=== PATIENT | female | born 1990 | race Caucasian/White ===

== ENCOUNTER 2018-09-22 15:21 | Emergency (ER) | payer OTHER, SELFPAY ==
[2018-09-22 15:23] VITALS: BP 163/87; PULSE 117; RESP 16; TEMP 36.6; O2SAT 99; BMI 42.3
--- NOTE | 2018-09-22 15:28 | RAD_ITS ---
STUDY: X-RAY - LEFT FOOT CLINICAL: Female, 28 years old. Twisted foot TECHNIQUE: 3 view(s) of the foot. COMPARISON: None. FINDINGS: There is a small osseous fragment along the superior, anterior talus with overlying dorsal soft tissue swelling, correlate clinically and with physical exam for possibility of small nondisplaced fracture. Otherwise the osseous structures are intact. The joint spaces are maintained. The soft tissue structures are unremarkable. RAD/Foot min 3 Views IMPRESSION: See above. Electronically Signed: Carrie Santillan, at 16:06 EDT Tel , Service support ,
--- NOTE | 2018-09-22 15:30 | ED.DCSUM_ITS ---
History of Present Illness Chief Complaint: Lower Extremity Injury Informant: Patient Occurred: Today Mechanism/Context: Fall - Missed last step and had a plantar inversion mechanism injury. She states she heard a pop. She complains of foot pain not ankle pain. Current Severity: 1/10 Maximum Severity: 8/10 Worsened by: Palpation and weightbearing. Relieved by: Rest Associated Symptoms: Loss of Funtion. Negative for: Parasthesia, Weakness Narrative: Patient is a 28-year-old woman who presents with left lower extremity injury. She was walking down steps. She missed the last lot. She reports a plantar inversion mechanism injury. He complains of pain lateral side of the left foot. She denies ankle pain. She denies prior injury. She reports no past medical history. Tetanus Immunization: 5-10 years Prior similar symptoms: No Recent Illness/Hospitalization: No - Past Medical History (1) No significant past medical history Status: Acute Past Medical History - Allergies and Home Meds Allergies/Adverse Reactions: Allergies No Known Allergies Allergy (Verified 09/22/18 15:25) Primary Care Physician: John Greenfield DO [Primary Care Provider] - Past Medical History: None Surgical History: no surgical history Lives: Spouse/ Significant Other Smoking Status: Never smoker Alcohol: Rare Drugs: None Review of Systems Musculoskeletal: Reports: Swelling - Left foot, Extremity Pain - left foot. Denies: Myalgias, Arthralgias, Neck pain, Back pain Neurological: Denies: Weakness, Parasthesia, Numbness Hematologic: Denies: Easy bruising, Easy bleeding Allergy: Denies: Uticaria, Swelling of the mouth Physical Exam Vital Signs/Narrative: Vital Signs Temp Pulse Resp BP Pulse Ox 09/22/18 15:23 97.8 F 117 H 16 163/87 H 99 Inital Vital Signs reviewed: Yes - Extremity Exam Left Knee: Negative for: Abrasion, Contusion, Deformity, Edema, Hematoma, Limited ROM, - Left Tib Fib: Negative for: Abrasion, Contusion, Deformity, Edema, Hematoma, Limited ROM, - Left Ankle: Negative for: Abrasion, Contusion, Deformity, Edema, Hematoma, Limited ROM, - - There is no pain no patient over the lateral medial malleolus. The Achilles tendon is functionally intact. No laxity with drawer testing. Left Foot: Negative for: Abrasion, Contusion, Deformity, Edema, Hematoma, Limited ROM, - - Pain to palpation over the tarsal/metatarsal bones. There is no point tenderness over the base of the fifth metatarsal. PT pulses palpable. Unable to palpate DP pulse secondary to soft tissue swelling. There is no pain to palpation over the first metatarsal bone. Left Toe: Contusion, Edema, Hematoma, Limited ROM, - - Pain to palpation over the tarsal/metatarsal bones. There is no point tenderness over the base of the fifth metatarsal. PT pulses palpable. Unable to palpate DP pulse secondary to soft tissue swelling. There is no pain to palpation over the first metatarsal bone. There is no subungual hematoma of the toes. There is no pain palpation of the phalanges.. Negative for: Abrasion, Deformity General: Well nourished, Well developed, Obese Head: Normocephalic, Atraumatic Eyes: Perrl, EOMI. Negative for: Pale conjunctiva, Scleral icterus, - ENT: No Trauma, Moist Mucous Membranes Cardiovascular: Regular rate, Regular rhythm Respiratory: No distress Skin: Normal color, Trauma. Negative for: Cyanosis, Jaundice Neurological: Alert, Oriented x3, Cranial nerves II-XII grossly intact, Normal Strength, Normal Sensation. Negative for: Normal Gait Psychological: Normal affect Diagnostic/Tx/Re-eval Chest X-Ray - ED: Read by ED Physician, - - 3 view x-ray of the left foot was interpreted me as a nondisplaced avulsion fracture distal anterior talus. Dr. Richter was paged at 1603 to discuss treatment and follow-up. - Medical Decision Making X-ray of the left foot was obtained since there is no tenderness over the lateral medial malleolus. X-ray was obtained to evaluate for soft tissue injury versus fracture. Patient was offered pain medicine, which she declined. Procedures - Lower Extremity Splints Lower Extremity Splint: Orthoglass - Posterior short leg splint with ankle at 90 degrees Splint Fabrication: Fabricated Location: Left ED Disposition - Plan for ED Patient: Disposition: Home or Assisted Living Diagnosis: Nondisplaced avulsion fracture (chip fracture) of left talus, initial encounter for closed fracture Instructions: ED Fx Foot, ED Splint Care Fiberglass Prescriptions: Hydrocodone Bitart/Apap 5-325 [[place] 5MG-325MG] 1 tab PO Q6H PRN PRN 3 Days #10 tab PRN Reason: Pain Referrals: John Greenfield DO [Primary Care Provider] - Landry White DO [STAFF PHYSICIAN] - 5-7 Days Additional Instructions: Must keep splint absolutely clean and dry. Do not place any weight on your left foot.
== END 2018-09-22 17:54 | disposition home or self-care (01) ==
PROVIDERS: Emergency Provider Emergency Medicine; Family Provider Student in an Organized Health Care Education/Training Program; PCP Student in an Organized Health Care Education/Training Program
DX: S92.155A Nondisplaced avulsion fracture (chip fracture) of left talus, initial encounter for closed fracture (principal); X50.1XXA Overexertion from prolonged static or awkward postures, initial encounter; Y93.01 Activity, walking, marching and hiking; Y92.009 Unspecified place in unspecified non-institutional (private) residence as the place of occurrence of the external cause; Y99.8 Other external cause status
CPT/HCPCS: 29515; 73630; 99282

== ENCOUNTER → 2018-10-04 | Outpatient (CLI) | payer OTHER, SELFPAY ==
[2018-09-22 15:23] VITALS: BMI 42.3
--- NOTE | 2018-10-04 13:00 | CT_ITS ---
STUDY: CT LEFT FOOT REASON FOR EXAM: Female, 28 years old. Contusion left foot. Fell down one step 12 days ago. RADIATION DOSAGE (If Supplied By Facility): CTDIvol = ( 15.35 ) mGy, DLP = ( 411.33 ) mGycm TECHNIQUE: Thin section transaxial imaging of the foot was obtained, with sagittal and coronal reconstructed images. Individualized dose optimization techniques were used for this CT. COMPARISON: Plain film of the foot September 22, 2018. FINDINGS: There is a 7 mm x 5 mm x 3 mm nondisplaced fracture involving the anterior superior lateral corner of the calcaneus sagittal image 27 series 601 axial image 43 series 3 and coronal image 51 series 602. 7 mm x 2 mm minimally displaced avulsion fracture adjacent to the anterior superior margin head of the talus which is probably an old injury sagittal image 27 series 601. Normal visualized tibiotalar, subtalar, talonavicular, calcaneocuboid, tarsal and tarsometatarsal articulations. Normal metatarsi. Normal metatarsophalangeal joint of the great toe. Normal tibial and fibular sesamoid bones. Normal interphalangeal joint of the great toe. Normal phalanges of the great toe. Normal second through fifth metatarsophalangeal joints. Normal interphalangeal joints and phalanges of the lesser toes. The soft tissue structures are unremarkable. CT/Extremity Lower without Contra IMPRESSION: Nondisplaced fracture anterior superior lateral corner of the calcaneus. Small avulsion fracture head of the talus age indeterminate. Electronically Signed: Johnny Cabrera MD at 6:13 EDT , Service support ,
== END | disposition home or self-care (01) ==
LOC: CT 12:58
PROVIDERS: Family Provider Student in an Organized Health Care Education/Training Program; PCP Student in an Organized Health Care Education/Training Program; Referring Provider Physician Assistant; Visit Provider Physician Assistant
DX: S90.32XA Contusion of left foot, initial encounter (principal)
CPT/HCPCS: 73700

== ENCOUNTER 2019-04-13 08:37 | Day surgery (SDC) | payer OTHER, SELFPAY ==
--- NOTE | 2019-04-10 15:44 | RAD_ITS ---
STUDY: X-RAY CHEST REASON FOR EXAM: Female, 29 years old. Pre-op TECHNIQUE: PA and lateral views of the chest. COMPARISON: None. FINDINGS: The lungs are clear and expanded. There is no demonstrated pleural abnormality. Normal size heart. Normal mediastinum and lucille. Normal visualized pulmonary arteries. Normal visualized aortic arch and descending thoracic aorta. Normal visualized thoracic spine. Normal visualized ribs, clavicles, and shoulders. There is no demonstrated abnormality of the visualized soft tissue structures of the upper abdomen. RAD/Chest PA and Lateral IMPRESSION: Normal x-ray examination of the chest. Electronically Signed: Chuy Blackwell DO at 16:47 EST Tel , Service support ,
[2019-04-13] VITALS (9 sets, daily range): BP systolic 132–144; BP diastolic 77–100; PULSE 78–96; RESP 16; TEMP 35.7–36.3; O2SAT 96–100; BMI 46.9
[2019-04-13 09:21] LABS: Internal QC Validated? YES +Cl - CLEAR BKGD; Pregnancy, Urine Negative Negative
[2019-04-13] MEDS: Lactated Ringers 1,000 ML 100 ML IV (10:03)
--- NOTE | 2019-04-13 10:32 | RAD_ITS ---
STUDY: X-RAY - LEFT CALCANEUS REASON FOR EXAM: Female, 29 years old. EXCISION OF NONUNION CALCANEAL FX -- TECHNIQUE: Fluoroscopy time 480 SECONDS -- 14.86 MGY -- 6 IMAGES COMPARISON: September 22, 2018. FINDINGS: 6 intraoperative images of a excision of a nonunited calcaneal fracture are provided. Visualized osseous structures are unremarkable. Alignment is anatomic. Soft tissues are unremarkable. RAD/Calcaneus min 2 Views IMPRESSION: 6 intraoperative images of a excision of a nonunited calcaneal fracture please see operative report for further details. Electronically Signed: Teto Hazel, at 16:42 EST Tel , Service support ,
[2019-04-13] MEDS: Bupivacaine Mpf 0.5% 30 ML VIAL (10:45)
--- NOTE | 2019-04-13 12:44 | RAD_ITS ---
STUDY: X-RAY - LEFT FOOT CLINICAL: Female, 29 years old. Postop evaluation TECHNIQUE: 3 view(s) of the foot. COMPARISON: September 22, 2018. FINDINGS: Postoperative changes are seen associated with the calcaneus and soft tissues. Alignment is anatomic. No acute osseous abnormality is identified. IMPRESSION: Postoperative changes left foot. Electronically Signed: Teot Hazel, at 14:32 EST Tel , Service support , RAD/Foot min 3 Views
--- NOTE | 2019-04-13 12:45 | DCINST_ITS ---
Discharge Activity: May Not Drive, May not drive while taking narcotic pain medications., May Not Shower, Use Walker, Use Crutches Ice area for (Minutes): 20 - ice behind left knee 20 minutes on 20 minutes off every hour while awake Weight Bearing Status: No weight bearing Keep extremity elevated above heart level: Left Leg Additional Activity Instructions:: keep dressing clean, dry, intact. Do not get dressing wet. Protect dressing when bathing with a cast protector or plastic bag and tape. Elevate left foot above level of heart at all times. Ice behind left knee 20 minutes on 20 minutes off every hour while awake for the next week. Take medications as prescribed. No walking or standing on left foot. Use crutches or walker for assistance. Call your doctor if your incision/area has: Sudden Increased Bleeding, Increased Pain/ Swelling Call your doctor if you observe: Fever of 101 or Higher, Shortness of breath, Dizziness, Chest pain, Increased palpitations (irregular heartbeat), Calf discomfort Change Dressing in (Days):: 0 - DO NOT CHANGE DRESSING Remove Dressing in (days):: 0 - DO NOT REMOVE DRESSING Cleanse incision/area with: Keep Dressing Clean & Dry Allergies/Adverse Reactions: Allergies No Known Allergies Allergy (Verified 04/07/19 13:07) Medications to take at Discharge Albuterol IH (ProAir) [Proair Hfa (SP)Vent Pts] 1 - 2 puff INHALATION Q6H PRN PRN 04/07/19 Bupropion HCl [Bupropion Xl] 150 mg PO BID 04/07/19 Cholecalciferol (VIT D3) [Vitamin D] 1,000 unit PO BID 04/07/19 Duloxetine Hcl [Cymbalta] 60 mg PO DAILY 04/07/19 Fluticasone Propion/Salmeterol [Wixela 250-50 Inhub] 1 puff IH DAILY 04/07/19 Loratadine [Claritin] 10 mg PO DAILY 04/07/19 Metaxalone [Skelaxin] 800 mg PO DAILY 04/07/19 Montelukast [Singulair] 10 mg PO DAILY 04/07/19 Norgestimate-Ethinyl Estradiol [Tri-Sprintec Tablet] 1 ea PO DAILY 04/07/19 Ranitidine HCl [Zantac 75] 75 mg PO BID 04/07/19 Sumatriptan [Imitrex] 20 mg NS PRN PRN 04/07/19 Primary Care Physician: John Greenfield DO [Primary Care Provider] - Test Results: Test results from this visit will be discussed in further detail at your follow- up appointment, if applicable. Please Follow Up With: Lj Keys DPM When: in 1 week in [place] office Proposed Discharge Date: 04/13/19
--- NOTE | 2019-04-13 12:48 | PCM.OPRPT ---
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 Full removal of fragment achieved. liner replacer: Darlene Smith Type of Anesthesia:: MAC/Supplemental - with postoperative popliteal block Anesthesiologist: Miguel Prater Special Medications: 3 g Ancef Specimen's removed: Nonunion of left anterior calcaneus Drains: None Estimated Blood Loss (mL): 20 Description of Procedure: Hemostasis: Pneumatic calf tourniquet placed at the level of the left calf at 250 mmHg for 95 minutes Materials: Size 0 Vicryl, 2-0 Vicryl, 3-0 Monocryl, 3-0 nylon Injectables: 10 cc of 0.5 to Marcaine plain, 14 cc of 2% Marcaine plain Complications: None Condition: Stable Indications: The patient is a 29-year-old female who suffered a slip and fall while at work in August 2018. Patient presented for treatment at that time with another physician. Conservative measures were employed, but patient was not getting better. Patient was then referred to me in December 2018. At that time, I exhausted conservative therapies including physical therapy, custom inserts, ankle bracing, and injections. MRI was performed showing a nonunion of the anterior process of the calcaneus. After exhausting multiple conservative therapies, the patient was getting frustrated and was tired of living with her pain. 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 Furthermore, the patient was becoming depressed due to the pain. I discussed with the patient her surgical options, including resection of the nonunion, calcaneocuboid fusion, and open reduction with internal fixation of the calcaneal fracture. The risks, benefits, possible outcomes, possible complications of each procedure were discussed with the patient. All the patient's questions were answered to her satisfaction and all of her concerns were addressed. No guarantees were made as to any of the surgical options. Patient understood this, and was electing to have the excision of the nonunion performed. I discussed with the patient the likelihood of osteoarthritis after this as well. Furthermore I discussed with the patient that she may need surgical intervention in the future for fusion of the joint. Patient displayed verbal understanding, and elected to proceed with excision of the fragment. Operative report: Before the patient was brought to the operating room, risks, benefits, possible outcomes, possible complications of the procedure discussed with the patient. All the patient's questions were answered to her satisfaction and all of her concerns were addressed. No guarantees were made as to the outcome of the procedure. Patient understood all aspects of the procedure and consent was then signed by the patient. Patient was then brought to the operating room placed on the operating table in a supine position. After timeout, under IV sedation, a well-padded pneumatic calf tourniquet was placed to the level of the left calf. The left foot, ankle and leg were then scrubbed, prepped, draped in the usual sterile manner. At this time 10 cc of 0.5% Marcaine plain was distributed a lateral ankle block fashion. Next radiographic evaluation was used to determine the location of the incision along with the location of the anterior process fragment. These were then marked on the patient. At this time the left foot ankle and leg were then elevated and exsanguinated via Esmarch and inflation of the matted calf tourniquet was performed to 250 mmHg. Attention was then directed to the lateral aspect of the left calcaneus. At this time a linear incision was made starting on the dorsal distal aspect of the calcaneal cuboid joint extending proximally and inferiorly to the inferior aspect of the calcaneocuboid joint. This was to follow skin tension lines to allow adequate healing. Next, 14 cc of 2% lidocaine plain was distributed a lateral ankle block fashion. This incision was deepened utilizing sharp and blunt dissection. Care was taken to retract all vital neural and vascular structures. All bleeders were cauterized and ligated as necessary. At this time the extensor digitorum brevis muscle belly with its retinaculum was identified. The retinaculum was incised in a similar fashion to that a skin incision. Next extensor digitorum brevis muscle belly was reflected superiorly off the anterior process of the calcaneus. At this time the anterior process was identified. The nonunion fragment was noted. Of the of note was the multiple fragments contained within this site. The MRI read 1 fragment, but there were obvious multiple fragments contained here. At this time all the fragments were removed in their entirety via sharp and blunt dissection. They were then passed from the operative site. Radiograph evaluation was then performed and was determined that there was no more fragment contained within the surgical site. The surgical site was then irrigated with copious amounts of normal sterile saline. 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 Care was taken to make sure it did not disturb any of the remaining cartilage within this joint. At this time the periosteal and capsular structures were reapproximated and coapted utilizing size 0 Vicryl. The extensor digitorum brevis muscle belly was attached to the periosteal and capsular structures utilizing 2-0 Vicryl. The extensor retinaculum over the muscle belly was reapproximated coapted using 2-0 Vicryl. The subcutaneous tissue was reapproximated and coapted using 3-0 Vicryl. The skin was reapproximated coapted using 3-0 nylon in a simple interrupted and horizontal mattress fashion. The pneumatic calf tourniquet was then released and a prompt hyperemic response was noted to the entirety of the left lower extremity. At this time the surgical site was dressed with Betadine soaked gauze, and a dry sterile dressing using 4 x 4 gauze wrapped with Kerlix. At this time the left foot and ankle were then wrapped with an Ariel bandage. Next cast padding was wrapped from the metatarsal heads extending proximally to the level just distal to the tibial tuberosity. A posterior splint was fashioned to the left lower extremity and was adhered to the left lower extremity utilizing Ariel bandages. Care was taken to make sure the foot was held in a dorsiflexed and everted position to decrease tension on the surgical site and allow adequate healing. Patient tolerated the anesthesia procedure well and was transported to the PACU with vital signs stable and neurovascular status intact to left lower extremity. Att this time the anesthesiologist administered a popliteal block to the left lower extremity for postoperative pain control. After period of postoperative monitoring, the patient will be discharged home with written and oral instructions for wound care and follow-up. The ophthalmology surgical technician, the nurse practitioner, was utilized throughout the entire procedure. She helped with patient positioning, holding of limb, holding retractors. She helped with exposure throughout. She helped with bandage application, and cast application. Without the ophthalmology surgical technician, surgical time would have been increased. Surgical outcome could have been less optimal. - Complications None - Admit VTE Documentation VTE Present on Admission: No VTE Mechan Device Prophylaxis: SCD's
== END 2019-04-13 14:22 | disposition home or self-care (01) ==
LOC: SDC 08:39 → AC 08:40
PROVIDERS: Anesthesiology; Family Provider Student in an Organized Health Care Education/Training Program; PCP Student in an Organized Health Care Education/Training Program; Referring Provider Podiatrist Foot & Ankle Surgery; Visit Provider Podiatrist Foot & Ankle Surgery
DX: S92.022K Displaced fracture of anterior process of left calcaneus, subsequent encounter for fracture with nonunion (principal); W10.9XXD Fall (on) (from) unspecified stairs and steps, subsequent encounter; J45.909 Unspecified asthma, uncomplicated; M79.7 Fibromyalgia; K21.9 Gastro-esophageal reflux disease without esophagitis; F41.9 Anxiety disorder, unspecified; Z79.899 Other long term (current) drug therapy
CPT/HCPCS: 28320; 64450; 71046; 73630; 73650; 76000; 81025; J7120; J2405

== ENCOUNTER 2020-04-27 00:21 | Observation (INO) | payer OTHER, SELFPAY ==
[2019-04-13 09:18] VITALS: BMI 46.9
[2020-04-27] VITALS (7 sets, daily range): BP systolic 126–153; BP diastolic 74–98; PULSE 71–124; RESP 16–20; TEMP 36.6–36.9; O2SAT 94–99; BMI 40.7; BMI 42.0; BMI 42.1
--- NOTE | 2020-04-27 00:35 | CT_ITS ---
HISTORY: Bilateral flank pain, elevated WBC. No prior surgery. TECHNIQUE: Helically acquired images were obtained of the abdomen and pelvis without oral or IV contrast. A radiation dose optimization technique was used for this scan. COMPARISON: None FINDINGS: # of images incl. paperwork: 505 LUNG BASES: clear. CT abdomen: Bones are unremarkable. The gallbladder is expanded with some ill-defined margins which could be indicative of gallbladder inflammation. Liver, spleen, pancreas, and adrenal glands are normal. The kidneys are normal. The aorta is normal. There is no intra-or extrahepatic biliary ductal dilatation. Shotty periaortic adenopathy. CT pelvis: Trace pelvic ascites is present. The uterus and ovaries are not pathologically enlarged. The appendix is normal. Series 2 image 120. The bladder is decompressed. Bowel gas pattern is normal. CT/Abdomen/Pelvis without Cont IMPRESSION: Findings suspicious for possible acute cholecystitis. As the liver, pancreas, aorta, IVC, kidneys, and spleen are adequately demonstrated on this CT scan, if a confirmatory ultrasound is to be contemplated, then ultrasound could be a dedicated, isolated gallbladder ultrasound. Individualized dose optimization techniques were used for this CT. at 0233 Reported and signed by: Aubrey Marinelli MD Electronically Signed: Aubrey Marinelli MD at 2:32 EST Tel , Service support ,
--- NOTE | 2020-04-27 00:36 | ED.VIS.GEN ---
History of Present Illness Chief Complaint: Flank Pain Informant: Patient Narrative: Presents with back pain and anterior abdominal pain. She stated started this evening several hours ago. She took a stool softener. She describes a sharp pain. Hurts in her right upper quadrant. She also feels some pain in her left side of her upper abdomen. She also feels in her back. No history of gallstones. Does have a history of chronic constipation. No urinary symptoms. No history of kidney stones. Current severity is moderate. Difficult to get comfortable. No previous abdominal surgeries. No area. Past Medical History - Allergies and Home Meds Allergies/Adverse Reactions: Allergies No Known Allergies Allergy (Verified 04/27/20 00:25) Primary Care Physician: John Greenfield DO [Primary Care Provider] - Prior records reviewed: Yes Past Medical History: - - Chronic constipation Surgical History: no surgical history Lives: With Family Smoking Status: Never smoker Alcohol: None Drugs: None Review of Systems General: Denies: Chills, Fever, Sweats Eyes: Denies: Visual changes - bilaterally, Diplopia ENT: Denies: Rhinorrhea, Sore throat Cardiovascular: Denies: Chest pain, Palpitations Respiratory: Denies: Dyspnea, Cough, Dyspnea on exertion Gastrointestinal: Reports: Abdominal pain, Nausea. Denies: Vomiting, Diarrhea, Melena, Hematochezia Genitourinary: Denies: Dysuria, Hematuria, Frequency Musculoskeletal: Reports: Back pain. Denies: Extremity Pain Skin: Denies: Rash, Wounds Neurological: Denies: Headache, Weakness, Numbness Physical Exam Vital Signs/Narrative: Vital Signs Temp Pulse Resp BP Pulse Ox 04/27/20 00:22 97.9 F 124 H 20 H 153/98 H 98 General: Well nourished, Well developed, No Acute Distress Head: Normocephalic, Atraumatic Eyes: Perrl, EOMI ENT: Moist mucous membranes, No rhinorrhea Neck: Supple, Nontender Cardiovascular: Regular rate, Regular rhythm, No murmurs Respiratory: No distress, CTA bilaterally, Chest nontender Abdomen: Soft, Nondistended, Normal bowel sounds, Tender - Tender right upper quadrant without guarding or rebound. Negative for: Guarding, Rebound tenderness Back: Nontender, Normal Inspection Extremities: Nontender, No edema Skin: Normal color, No rash Neurological: Alert, Oriented x3, Cranial nerves II-XII grossly intact, Normal Strength, Normal Sensation Psychological: Normal affect, Normal Mood Diagnostic/Tx/Re-eval - Medical Decision Making Given IV fluids morphine Toradol Zofran. Lab work and CT abdomen pelvis obtained. Work shows a slight elevation in her white blood cell count greater than 13,000. Slight elevation in ALT AST. CT abdomen pelvis shows findings suggestive of acute cholecystitis with distended gallbladder with ill-defined margins. I do not think she needs an acute ultrasound. On reevaluation she is pain-free resting comfortably. Given dose of Zosyn for her early cholecystitis. Discussed with surgery Dr. Hernandez patient will be admitted for definitive treatment ED Disposition - Plan for ED Patient: Disposition: Acute Care [facility] Diagnosis: Acute cholecystitis
[2020-04-27] MEDS: Ketorolac 15 MG/ML Vial IV (01:03)
[2020-04-27] MEDS: Ondansetron 4 MG/2 ML Vial IV (01:03)
[2020-04-27] MEDS: Morphine 4 MG/ML Syringe IV (01:04)
[2020-04-27] MEDS: 0.9% Normal Saline 1,000 ML 1000 ML IV (01:05)
[2020-04-27 01:17] LABS: Mucous, Urine 0 SEEN /hpf (<or=2+)
[2020-04-27 01:20] LABS: Absolute Lymphocyte Count 9.64 X10^3/uL (0.83-4.51); Basophil# 0.11 X10^3/uL; Basophil% 0.8 % (0-1); Differential Indicated SCAN CRITERIA MET; Eosinophil# 0.02 X10^3/uL; Eosinophils% 0.1 % (0-5); Hemoglobin 13.2 g/dL (12.0-15.0); Lymphocyte # 9.64 X10^3/ul (4.0); Lymphocyte % 69.6 % (19-41); Mean Corpuscular Hgb 28.1 pg (27.0-32.0); Mean Corpuscular Volume 85.3 fL (81-99); Mean Platelet Vol. 9.1 fl (6.2-12.0); Monocyte# 1.07 X10^3/uL; Monocyte% 7.7 % (0-10); NRBC Flagged by Analyzer 0 % (0-5); Neutrophil # 2.99 X10^3/uL (2.7-7.7); Neutrophil % 21.7 % (47-70); POSITIVE DIFFERENTIAL YES; POSITIVE MORPHOLOGY YES; Platelet Count 247 K/mm3 (150-450); RBC Distribution Width CV 13.2 % (11.6-14.6); RBC Distribution Width SD 41.1 fl (35.1-43.9); Red Blood Count 4.69 M/mm3 (4.2-5.4); White Blood Count 13.9 K/mm3 (4.4-11.0)
[2020-04-27 01:36] LABS: Internal QC Validated? YES +Cl - CLEAR BKGD; Pregnancy, Serum, hCG Quali. NEGATIVE Negative
[2020-04-27 01:40] LABS: Color, Urine Yellow (Yellow); Glucose, Dipstick Normal (Normal); Ketone-Dipstick Negative (Negative); Leukocyte Esterase-Dipstick Negative /ul (Negative); Nitrite-Dipstick Negative (Negative); Occult Blood-Urine 10 /ul (Negative); Protein-Dipstick 15 mg/dl (Negative); Urine Bilirubin Dipstick Negative (Negative); Urine Clarity Clear (Clear); Urine Urobilinogen Normal (Normal)
[2020-04-27 01:42] LABS: AST(SGOT) 53 U/L (15-37); Alanine Aminotransfer ALT/SGPT 99 U/L (13-56); Albumin, Serum 3.4 g/dL (3.2-5.0); Alkaline Phosphatase 114 U/L (45-117); Anion Gap 7 (5-15); BUN 12 mg/dL (7-18); BUN/Creat Ratio 11.4 RATIO (10-20); Bilirubin, Direct 0.12 mg/dL (0.00-0.30); Calcium,Total 8.9 mg/dL (8.5-10.1); Chloride 108 mmol/L (98-107); Creatinine, Serum 1.05 mg/dL (0.55-1.02); EST Glomerular Filtration Rate 64 mL/min (>60); Est Glom Filt Rate - Afr Amer 78 mL/min (>60); Globulin 4.1 g/dL (2.2-4.2); Glucose 93 mg/dL (74-106); Lipase 111 U/L (73-393); Potassium 4.1 mmol/L (3.5-5.1); Protein, Total 7.5 g/dL (6.4-8.2); Sodium Level 139 mmol/L (136-145)
[2020-04-27 01:45] LABS: Differential Comment SCANNED; Reactive Lymphocyte 3+
[2020-04-27 02:11] LABS: Bacteria 1+ /hpf (None Seen); Red Blood Cells-Urine 0-5 SEEN /hpf (0-5); Squamous Epithelial Cells - UA 0-5 SEEN /hpf (5-10); White Blood Cells 0-5 SEEN /hpf (0-5)
[2020-04-27] MEDS: 0.9% Normal Saline 1,000 ML 100 ML IV ×2 (04:57→13:43)
--- NOTE | 2020-04-27 05:20 | PCS.PANDOC ---
PANDEMIC DOCUMENTATION INITIATED: Date: 04/27/20 Time: 05
--- NOTE | 2020-04-27 05:55 | US_ITS ---
STUDY: ABDOMINAL ULTRASOUND - RIGHT UPPER QUADRANT REASON FOR VISIT: Female, 30 years old RUQ PAIN TECHNIQUE: Ultrasound evaluation of the right upper quadrant was performed with real-time and static hernandez-scale imaging. TECHNICAL QUALITY: Adequate. COMPARISON: CT abdomen and pelvis without contrast 04/27/2020. FINDINGS: Liver: The liver measures 18 point cm. There is normal echogenicity of the liver. The bile ducts are within normal limits. There is hepatic color flow. The direction of portal flow is hepatopetal. There is no demonstrated mass lesion. Gallbladder: Normal distended gallbladder. The gallbladder wall measures 4 mm. There is a negative sonographic Ramesh''s sign. There is trace pericholecystic fluid. There are no gallstones. Common Bile Duct (C.B.D.): The common bile duct measures 4 mm. Pancreas: Normal size of the head, body and tail of the pancreas. There is normal echogenicity of the pancreas. The pancreatic duct is not dilated. Right Kidney: Normal size of the right kidney. The right kidney measures 10.9 x 5.1 x 4.2 cm. Normal renal cortex. The right cortex measures 1.1 cm. There is no demonstrated renal mass or cyst. There is no right hydronephrosis. US/Abdomen Limited IMPRESSION: Trace pericholecystic fluid but negative sonographic Ramesh''s sign and no gallstones. Otherwise negative right upper quadrant ultrasound of the abdomen. Electronically Signed: Samuel Mcneil MD at 8:17 EST , Service support ,
[2020-04-27 07:01] LABS: Basophil% 0.7 % (0-1); Eosinophils% 0.2 % (0-5); Hematocrit 36.4 % (37-47); Hemoglobin 11.6 g/dL (12.0-15.0); Lymphocyte % 63.7 % (19-41); Mean Corp Hgb Conc 31.9 g/dL (32-36); Mean Corpuscular Hgb 27.8 pg (27.0-32.0); Mean Corpuscular Volume 87.3 fL (81-99); Monocyte% 7.8 % (0-10); Neutrophil % 27.4 % (47-70); POSITIVE DIFFERENTIAL YES; POSITIVE MORPHOLOGY YES; Platelet Count 203 K/mm3 (150-450); RBC Distribution Width CV 13.2 % (11.6-14.6); RBC Distribution Width SD 42.5 fl (35.1-43.9); Red Blood Count 4.17 M/mm3 (4.2-5.4)
[2020-04-27 07:02] LABS: Absolute Lymphocyte Count 6.36 X10^3/uL (0.83-4.51); Absolute Neutrophil Count 2.7 X10^3/uL (2.0-7.7); Basophil# 0.07 X10^3/uL; Eosinophil# 0.02 X10^3/uL; Lymphocyte # 6.36 X10^3/ul (4.0); Monocyte# 0.78 X10^3/uL; NRBC Flagged by Analyzer 0 % (0-5); Neutrophil # 2.73 X10^3/uL (2.7-7.7)
[2020-04-27 07:10] LABS: Differential Indicated SCAN CRITERIA MET
[2020-04-27 07:28] LABS: Differential Comment SCANNED; Reactive Lymphocyte 3+
[2020-04-27 07:31] LABS: ALB/GLOB Ratio 0.9 RATIO (0.9-2.4); AST(SGOT) 54 U/L (15-37); Alanine Aminotransfer ALT/SGPT 90 U/L (13-56); Alkaline Phosphatase 100 U/L (45-117); Anion Gap 7 (5-15); BUN 11 mg/dL (7-18); BUN/Creat Ratio 11.7 RATIO (10-20); Chloride 108 mmol/L (98-107); Creatinine, Serum 0.94 mg/dL (0.55-1.02); EST Glomerular Filtration Rate 73 mL/min (>60); Est Glom Filt Rate - Afr Amer 89 mL/min (>60); Estimated Creatinine Clearance 83.55 ml/min; Globulin 3.5 g/dL (2.2-4.2); Glucose 92 mg/dL (74-106); Potassium 3.8 mmol/L (3.5-5.1); Protein, Total 6.5 g/dL (6.4-8.2); Sodium Level 139 mmol/L (136-145)
--- NOTE | 2020-04-27 08:10 | HP.PCM_ITS ---
Problem List (1) Epigastric pain Status: Acute History of Present Illness Date of Admission: 04/27/20 The patient is a 30 year old F presented to the emergency room after having pain starting at 8 PM yesterday evening. The patient reports that she had pain that started in her back and radiated around both sides to epigastric region and right upper quadrant. She did have nausea but no vomiting. She denies any fevers or chills. This is never happened to her in the past. She does not eat anything abnormal except for ham yesterday. She denies any fevers or chills. Past Medical History Past Medical History (Chronic Problems): Chronic Problems (This Medical Record has been edited. 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) Allergies No Known Allergies Allergy (Verified 04/27/20 00:25) Home Medications: Ambulatory Orders Medication Instructions Recorded Albuterol IH (ProAir) [Proair Hfa 1 - 2 puff INHALATION Q6H PRN PRN 04/07/19 (SP)Vent Pts] Bupropion HCl [Bupropion Xl] 150 mg PO BID 04/07/19 Cholecalciferol (VIT D3) [Vitamin 1,000 unit PO BID 04/07/19 D] Duloxetine Hcl [Cymbalta] 60 mg PO QHS 04/07/19 Fluticasone Propion/Salmeterol 1 puff IH DAILY 04/07/19 [Wixela 250-50 Inhub] Loratadine [Claritin] 10 mg PO DAILY 04/07/19 Metaxalone [Skelaxin] 800 mg PO QHS 04/07/19 Montelukast [Singulair] 10 mg PO QHS 04/07/19 Norgestimate-Ethinyl Estradiol 1 ea PO QHS 04/07/19 [Tri-Sprintec Tablet] Ranitidine HCl [Zantac 75] 75 mg PO BID 04/07/19 Sumatriptan [Imitrex] 20 mg NS PRN PRN 04/07/19 Gabapentin 100 mg PO TID 04/27/20 Surgical History: no surgical history Lives: With Family Smoking Status: Never smoker Alcohol: None Drugs: None Review of Systems Constitutional: Denies: Anorexia, Chills, Fever HEENT: Denies: Difficulty Swallowing Cardiovascular: Denies: Chest Pain Respiratory: Denies: Cough, Shortness of Breath Gastrointestinal: Reports: Abdominal Pain, Nausea. Denies: Constipation, Diarrhea, Hematemesis, Hematochezia, Vomiting Genitourinary: Denies: Dysuria Musculoskeletal: Denies: Joint Tenderness Skin: Denies: Jaundice Neurological: Denies: Balance problems Hematologic/ Lymphatic: Denies: Anemia VTE Information - Inpt Only VTE Present on Admission: No VTE Mechan Device Prophylaxis: SCD's Patient Problems: Active and Suspected Problems (This Medical Record has been edited. Action required.) Acute cholecystitis (Acute) - Physical Exam Vitals/I&O's: Vital Signs Temp Pulse Resp BP Pulse Ox 98.3 F 74 16 126/74 H 94 04/27/20 07:45 04/27/20 07:45 04/27/20 07:45 04/27/20 07:45 04/27/20 07:45 Oxygen Delivery Method Room Air Weight: 268 lb 11.896 oz Body Mass Index (BMI) 42.0 Intake and Output for Last 24 Hours 04/25/20 04/26/20 04/27/20 23:59 23:59 23:59 Intake Total 1100 / 1100 Balance 1100 / 1100 General: Alert, Oriented x3 Neck: No JVD Lungs: Normal air movement Cardiovascular: Regular rate, Regular Rhythm Abdomen: Soft, Non Tender, Non-Distended Musculoskeletal: No Muscle Wasting Neurological: Cranial nerves II-XII grossly intact Psych/Mental Status: Normal Affect Laboratory Results 04/27/20 01:05: WBC 13.9 H, RBC 4.69, Hgb 13.2, Hct 40.0, MCV 85.3, MCH 28.1, MCHC 33.0, RDW Std Deviation 41.1, RDW Coeff of Dejan 13.2, Plt Count 247, MPV 9.1, Immature Gran % (Auto) 0.100, Neut % (Auto) 21.7 L, Lymph % (Auto) 69.6 H, [place] % (Auto) 7.7, Eos % (Auto) 0.1, Baso % (Auto) 0.8, Absolute Neuts (auto) 3.0, Absolute Lymphs (auto) 9.64 H, Nucleated RBC % 0, Differential Comment SCANNED, Reactive Lymphocytes 3+ 04/27/20 01:05: Sodium 139, Potassium 4.1, Chloride 108 H, Carbon Dioxide 24.0, Anion Gap 7, BUN 12, Creatinine 1.05 H, Estim Creat Clear Calc 74.80, Est GFR (MDRD) Af Amer 78, Est GFR (MDRD) Non-Af 64, BUN/Creatinine Ratio 11.4, Glucose 93, Calcium 8.9, Total Bilirubin 0.30, Direct Bilirubin 0.12, AST 53 H, ALT 99 H , Alkaline Phosphatase 114, Total Protein 7.5, Albumin 3.4, Globulin 4.1, Lipase 111 04/27/20 01:05: Serum , Qual NEGATIVE 04/27/20 01:05: Urine Color Yellow, Urine Clarity Clear, Urine pH 7.0, Ur Specific Magna 1.010, Urine Protein 15 H, Urine Glucose (UA) Normal, Urine Ketones Negative, Urine Occult Blood 10 H, Urine Nitrite Negative, Urine Bilirubin Negative, Urine Urobilinogen Normal, Ur Leukocyte Esterase Negative, Urine RBC 0-5 SEEN, Urine WBC 0-5 SEEN, Ur Squamous Epith Cells 0-5 SEEN, Urine Bacteria 1+, Urine Mucus 0 SEEN 04/27/20 04:42: Hepatitis A IgM Ab Pending, Hep Bs Antigen Pending, Hep B Core IgM Ab Pending, Hepatitis C Ab (EIA) Pending 04/27/20 06:35: WBC 10.0, RBC 4.17 L, Hgb 11.6 L, Hct 36.4 L, MCV 87.3, MCH 27.8, MCHC 31.9 L, RDW Std Deviation 42.5, RDW Coeff of Dejan 13.2, Plt Count 203, MPV 9.0, Immature Gran % (Auto) 0.200, Neut % (Auto) 27.4 L, Lymph % (Auto) 63.7 H, [place] % (Auto) 7.8, Eos % (Auto) 0.2, Baso % (Auto) 0.7, Absolute Neuts (auto) 2.7, Absolute Lymphs (auto) 6.36 H, Nucleated RBC % 0, Differential Comment SCANNED, Reactive Lymphocytes 3+ 04/27/20 06:35: Sodium 139, Potassium 3.8, Chloride 108 H, Carbon Dioxide 24.0, Anion Gap 7, BUN 11, Creatinine 0.94, Estim Creat Clear Calc 83.55, Est GFR (MDRD) Af Amer 89, Est GFR (MDRD) Non-Af 73, BUN/Creatinine Ratio 11.7, Glucose 92, Calcium 8.0 L, Total Bilirubin 0.40, AST 54 H, ALT 90 H, Alkaline Phosphatase 100, Total Protein 6.5, Albumin 3.0 L, Globulin 3.5, Albumin/Globulin Ratio 0.9 Current Medications Albuterol Sulfate (Albuterol 2.5 Mg/3 Ml Vial.Neb.) 2.5 mg INHALATION Q4H PRN PRN PRN Reason: SOB &/OR WHEEZING Bupropion HCl (Bupropion (Xl) 150 Mg Tablet.Xl) 150 mg PO BID [facility] Duloxetine HCl (Duloxetine Hcl 60 Mg Capsule) 60 mg PO DAILY [facility] Gabapentin (Gabapentin 100 Mg Capsule) 100 mg PO TID [facility] Last Admin: 04/27/20 05:50 Dose: Not Given Documented by: Sodium Chloride () 1,000 mls @ 100 mls/hr IV .Q10H [facility] Last Admin: 04/27/20 04:57 Dose: 100 mls/hr Documented by: Piperacillin Sod/Tazobactam (Sod 3.375 gm/ Sodium Chloride) 50 mls @ 12.5 mls/hr IV Q8 [facility] Sodium Chloride () 250 mls @ 15 mls/hr IV .[id number] PRN PRN Reason: Saline Flush Sodium Chloride () 250 mls @ 15 mls/hr IV .[id number] PRN PRN Reason: Additional IVPB Infusion Loratadine (Loratadine 10 Mg Tablet) 10 mg PO DAILY [facility] Metaxalone (Metaxalone 800 Mg Tablet) 800 mg PO DAILY [facility] Montelukast Sodium (Montelukast 10 Mg Tablet) 10 mg PO DAILY [facility] Morphine Sulfate (Morphine 2 Mg/Ml Syringe) 2 - 4 mg IV Q2H PRN PRN PRN Reason: Pain Score 4-10 Non-Formulary Medication (Norgestimate-Ethinyl Estradiol [Tri-Sprintec Tablet]) 1 ea PO DAILY [facility] Non-Formulary Medication (Sumatriptan [Imitrex]) 20 mg NS PRN PRN PRN Reason: migraines Ondansetron HCl (Ondansetron 4 Mg/2 Ml Vial) 4 mg IV Q6H PRN PRN PRN Reason: NAUSEA Pantoprazole Sodium (Pantoprazole Sodium 40 Mg Tablet) 40 mg PO DAILY [facility] Sodium Chloride (0.9% Saline Lock 10 Ml Syringe) 10 - 40 ml IV UD PRN PRN Reason: SALINE FLUSH Assessment/Plan All Active Problems (This Medical Record has been edited. Action required.) No significant past medical history (Acute) Acute cholecystitis (Acute) Epigastric pain (Acute) 30-year-old female with right upper quadrant and epigastric pain 1. The patient reports her pain is almost resolved. She had no nausea or vomiting overnight and her abdominal pain is greatly improved this morning. I was unable to elicit any pain with palpation to the abdomen. I reviewed your CT scan which showed thickening of the gallbladder wall and her labs. Her labs showed a white count yesterday which has improved this morning but she did not have a left shift, rather she had increased lymphocytes. This suggests some sort of viral infection. I have checked a hepatitis profile and a Covid antigen test. The patient had ultrasound of the right upper quadrant which did not reveal any stones on my interpretation I am waiting for radiology officially to read the ultrasound. The patient did have a thickened gallbladder wall on ultrasound which can also occur in the face of hepatitis A. 2. At this time with no stones in the gallbladder that I can see and a lymphoc yte shift I will start the patient on a clear liquid diet and see how she does. If she does well and the ultrasound shows no stones I will try to advance her diet and see if she tolerates that. If the hepatitis panel is positive I will discharge her home tomorrow. If everything comes back negative I will try to advance her diet and see if he tolerates that for discharge. I am hesitant to take her to the operating room as I believe she does not have acute cholecystitis. Pravin Hernandez MD Pager: [facility] [address] [place] [address], [address] [place] [address] Office:
[2020-04-27] MEDS: Loratadine 10 MG Tablet PO (10:35)
[2020-04-27] MEDS: Pantoprazole Sodium 40 MG Tablet PO (10:36)
[2020-04-27] MEDS: DULoxetine Hcl 60 MG Capsule PO (10:36)
[2020-04-27] MEDS: buPROPion (XL) 150 MG TABLET.XL PO ×2 (10:36→21:35)
[2020-04-27] MEDS: Metaxalone 800 MG Tablet PO (10:42)
[2020-04-27] MEDS: Gabapentin 100 MG Capsule PO ×2 (13:42→21:35)
[2020-04-27] MEDS: Acetaminophen 325 MG Tablet 650 MG PO (20:50)
[2020-04-27] MEDS: Montelukast 10 MG Tablet PO (21:35)
[2020-04-28 02:21] VITALS: BP 133/62; PULSE 63; RESP 16; TEMP 36.6; O2SAT 97
[2020-04-28] MEDS: 0.9% Normal Saline 1,000 ML 100 ML IV (02:26)
[2020-04-28] MEDS: Gabapentin 100 MG Capsule PO (05:36)
[2020-04-28 06:30] LABS: Absolute Lymphocyte Count 5.92 X10^3/uL (0.83-4.51); Absolute Neutrophil Count 1.2 X10^3/uL (2.0-7.7); Basophil# 0.05 X10^3/uL; Basophil% 0.6 % (0-1); Eosinophil# 0.03 X10^3/uL; Eosinophils% 0.4 % (0-5); Hematocrit 36.2 % (37-47); Hemoglobin 11.5 g/dL (12.0-15.0); Lymphocyte # 5.92 X10^3/ul (4.0); Lymphocyte % 74.7 % (19-41); Mean Corp Hgb Conc 31.8 g/dL (32-36); Mean Corpuscular Volume 88.1 fL (81-99); Mean Platelet Vol. 9.5 fl (6.2-12.0); Monocyte# 0.68 X10^3/uL; Monocyte% 8.6 % (0-10); NRBC Flagged by Analyzer 0 % (0-5); Neutrophil # 1.24 X10^3/uL (2.7-7.7); Neutrophil % 15.6 % (47-70); POSITIVE DIFFERENTIAL YES; POSITIVE MORPHOLOGY YES; Platelet Count 200 K/mm3 (150-450); RBC Distribution Width CV 13.4 % (11.6-14.6); RBC Distribution Width SD 43.7 fl (35.1-43.9); Red Blood Count 4.11 M/mm3 (4.2-5.4); White Blood Count 7.9 K/mm3 (4.4-11.0)
[2020-04-28 06:47] LABS: Differential Indicated SCAN CRITERIA MET
[2020-04-28 07:01] LABS: Reactive Lymphocyte 2+
[2020-04-28 07:02] LABS: Differential Comment SCANNED
[2020-04-28 07:28] LABS: ALB/GLOB Ratio 0.8 RATIO (0.9-2.4); AST(SGOT) 55 U/L (15-37); Alanine Aminotransfer ALT/SGPT 88 U/L (13-56); Albumin, Serum 2.8 g/dL (3.2-5.0); Alkaline Phosphatase 91 U/L (45-117); Anion Gap 6 (5-15); BUN 9 mg/dL (7-18); BUN/Creat Ratio 10.9 RATIO (10-20); Calcium,Total 8.4 mg/dL (8.5-10.1); Chloride 110 mmol/L (98-107); Creatinine, Serum 0.82 mg/dL (0.55-1.02); EST Glomerular Filtration Rate 85 mL/min (>60); Est Glom Filt Rate - Afr Amer 103 mL/min (>60); Estimated Creatinine Clearance 95.78 ml/min; Globulin 3.3 g/dL (2.2-4.2); Glucose 81 mg/dL (74-106); Potassium 3.8 mmol/L (3.5-5.1); Protein, Total 6.1 g/dL (6.4-8.2); Sodium Level 139 mmol/L (136-145)
--- NOTE | 2020-04-28 08:09 | PN.SURG_ITS ---
Patient Problems: Active and Suspected Problems (This Medical Record has been edited. Action required.) Acute cholecystitis (Acute) Epigastric pain (Acute) Subjective: Patient did well and tolerated regular diet yesterday with no abdominal pain or nausea or vomiting. - Physical Exam Vitals/I&O's: Vital Signs Temp Pulse Resp BP Pulse Ox 98 F 63 16 133/62 H 97 04/28/20 02:21 04/28/20 02:21 04/28/20 02:21 04/28/20 02:21 04/28/20 02:21 Oxygen Delivery Method Room Air Weight: 268 lb 11.896 oz Body Mass Index (BMI) 42.0 Intake and Output for Last 24 Hours 04/26/20 04/27/20 04/28/20 23:59 23:59 23:59 Intake Total 3826.67 / 3826.67 350 / 350 Output Total 900 / 900 1000 / 1000 Balance 2926.67 / 2926.67 -650 / -650 General: Alert, Oriented x3 Lungs: Normal air movement Abdomen: Soft, Non Tender, Non-Distended Laboratory Results 04/28/20 05:27: WBC 7.9, RBC 4.11 L, Hgb 11.5 L, Hct 36.2 L, MCV 88.1, MCH 28.0, MCHC 31.8 L, RDW Std Deviation 43.7, RDW Coeff of Dejan 13.4, Plt Count 200, MPV 9.5, Immature Gran % (Auto) 0.100, Neut % (Auto) 15.6 L, Lymph % (Auto) 74.7 H, [place] % (Auto) 8.6, Eos % (Auto) 0.4, Baso % (Auto) 0.6, Absolute Neuts (auto) 1.2 L, Absolute Lymphs (auto) 5.92 H, Nucleated RBC % 0, Differential Comment SCANNED, Reactive Lymphocytes 2+ 04/28/20 05:27: Sodium 139, Potassium 3.8, Chloride 110 H, Carbon Dioxide 23.0, Anion Gap 6, BUN 9, Creatinine 0.82, Estim Creat Clear Calc 95.78, Est GFR (MDRD) Af Amer 103, Est GFR (MDRD) Non-Af 85, BUN/Creatinine Ratio 10.9, Glucose 81, Calcium 8.4 L, Total Bilirubin 0.40, AST 55 H, ALT 88 H, Alkaline Phosphatase 91, Total Protein 6.1 L, Albumin 2.8 L, Globulin 3.3, Albumin/Globulin Ratio 0.8 L Current Medications Acetaminophen (Acetaminophen 325 Mg Tablet) 650 mg PO Q4H PRN PRN PRN Reason: Pain 1-10 or Fever Last Admin: 04/27/20 20:50 Dose: 650 mg Documented by: Albuterol Sulfate (Albuterol 2.5 Mg/3 Ml Vial.Neb.) 2.5 mg INHALATION Q4H PRN PRN PRN Reason: SOB &/OR WHEEZING Bupropion HCl (Bupropion (Xl) 150 Mg Tablet.Xl) 150 mg PO BID [facility] Last Admin: 04/27/20 21:35 Dose: 150 mg Documented by: Duloxetine HCl (Duloxetine Hcl 60 Mg Capsule) 60 mg PO DAILY [facility] Last Admin: 04/27/20 10:36 Dose: 60 mg Documented by: Gabapentin (Gabapentin 100 Mg Capsule) 100 mg PO TID [facility] Last Admin: 04/28/20 05:36 Dose: 100 mg Documented by: Sodium Chloride () 1,000 mls @ 100 mls/hr IV .Q10H [facility] Last Admin: 04/28/20 02:26 Dose: 100 mls/hr Documented by: Piperacillin Sod/Tazobactam (Sod 3.375 gm/ Sodium Chloride) 50 mls @ 12.5 mls/hr IV Q8 [facility] Last Admin: 04/28/20 05:36 Dose: 12.5 mls/hr Documented by: Sodium Chloride () 250 mls @ 15 mls/hr IV .[id number] PRN PRN Reason: Saline Flush Sodium Chloride () 250 mls @ 15 mls/hr IV .[id number] PRN PRN Reason: Additional IVPB Infusion Loratadine (Loratadine 10 Mg Tablet) 10 mg PO DAILY [facility] Last Admin: 04/27/20 10:35 Dose: 10 mg Documented by: Metaxalone (Metaxalone 800 Mg Tablet) 800 mg PO DAILY [facility] Last Admin: 04/27/20 10:42 Dose: 800 mg Documented by: Montelukast Sodium (Montelukast 10 Mg Tablet) 10 mg PO DAILY [facility] Last Admin: 04/27/20 21:35 Dose: 10 mg Documented by: Morphine Sulfate (Morphine 2 Mg/Ml Syringe) 2 - 4 mg IV Q2H PRN PRN PRN Reason: Pain Score 4-10 Non-Formulary Medication (Norgestimate-Ethinyl Estradiol [Tri-Sprintec Tablet]) 1 ea PO DAILY [facility] Non-Formulary Medication (Sumatriptan [Imitrex]) 20 mg NS PRN PRN PRN Reason: migraines Ondansetron HCl (Ondansetron 4 Mg/2 Ml Vial) 4 mg IV Q6H PRN PRN PRN Reason: NAUSEA Pantoprazole Sodium (Pantoprazole Sodium 40 Mg Tablet) 40 mg PO DAILY [facility] Last Admin: 04/27/20 10:36 Dose: 40 mg Documented by: Sodium Chloride (0.9% Saline Lock 10 Ml Syringe) 10 - 40 ml IV UD PRN PRN Reason: SALINE FLUSH Medical Necessity - Tobacco Use Smoking Status: Never smoker Assessment/Plan All Active Problems (This Medical Record has been edited. Action required.) No significant past medical history (Acute) Acute cholecystitis (Acute) Epigastric pain (Acute) 30-year-old female with abdominal pain 1. The patient had an ultrasound which showed thickening of the gallbladder wall with no stones. The patient had a lymphocyte shift on her differential of her white blood cell count. I believe that she has a viral infection and possibly acute hepatitis. The LFTs have stayed mildly elevated and she tolerated regular diet with no nausea or vomiting or abdominal pain yesterday. I will discharge patient home. Follow-up as needed. Call my office for hepatitis results tomorrow. Pravin Hernandez MD Pager: [facility] [address] [place] [address] [address] [place] [address] Office:
--- NOTE | 2020-04-28 08:10 | DCINST_ITS ---
- Discharge Diagnoses Current Active Problems: Current Active and Chronic Problems (This Medical Record has been edited. Action required.) Acute cholecystitis (Acute) Epigastric pain (Acute) You will use the following diet at home:: Regular Your food should be the consistency of: Regular Discharge Activity: Return to Normal Activity Call your doctor if you observe: Fever of 101 or Higher, Uncontrolled pain Allergies/Adverse Reactions: Allergies No Known Allergies Allergy (Verified 04/27/20 00:25) Medications to take at Discharge Albuterol IH (ProAir) [Proair Hfa] 1 - 2 puff INHALATION Q6H PRN PRN 04/07/19 Bupropion HCl [Bupropion Xl] 150 mg PO BID 04/07/19 Cholecalciferol (VIT D3) [Vitamin D3] 1,000 unit PO BID 04/07/19 Duloxetine Hcl [Cymbalta] 60 mg PO QHS 04/07/19 Fluticasone Propion/Salmeterol [Wixela 250-50 Inhub] 1 puff IH DAILY 04/07/19 Loratadine [Claritin] 10 mg PO DAILY 04/07/19 Metaxalone [Skelaxin] 800 mg PO QHS 04/07/19 Montelukast [Singulair] 10 mg PO QHS 04/07/19 Norgestimate-Ethinyl Estradiol [Tri-Sprintec Tablet] 1 ea PO QHS 04/07/19 Ranitidine HCl [Zantac 75] 75 mg PO BID 04/07/19 Sumatriptan [Imitrex] 20 mg NS PRN PRN 04/07/19 Gabapentin 100 mg PO TID 04/27/20 Primary Care Physician: John Greenfield DO [Primary Care Provider] - Test Results: Test results from this visit will be discussed in further detail at your follow- up appointment, if applicable. Please Follow Up With: Pravin Hernandez MD When: Call office tomorrow for lab results [phone]
--- NOTE | 2020-04-28 08:12 | DS.PCM_ITS ---
Discharge Date and Diagnosis - Problem List Patient Problems: Active and Suspected Problems (This Medical Record has been edited. Action required.) Acute cholecystitis (Acute) Epigastric pain (Acute) Date of Admission: 04/27/20 Date of Discharge: 04/28/20 - Primary Discharge Diagnosis Acute Problems: Active Problems (This Medical Record has been edited. Action required.) Acute cholecystitis (Acute) Epigastric pain (Acute) - Secondary Discharge Diagnosis Chronic Problems: Chronic Problems (This Medical Record has been edited. 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 As the liver, pancreas, aorta, IVC, kidneys, and spleen are adequately demonstrated on this CT scan, if a confirmatory ultrasound is to be contemplated, then ultrasound could be a dedicated, isolated gallbladder ultrasound. Individualized dose optimization techniques were used for this CT. at 0233 Reported and signed by: Aubrey Marinelli MD Electronically Signed: Aubrey Marinelli MD at 2:32 EST Tel , Service support , Abdomen Ultrasound 04/27/20 05:55 IMPRESSION: Trace pericholecystic fluid but negative sonographic Ramesh''s sign and no gallstones. Otherwise negative right upper quadrant ultrasound of the abdomen. Electronically Signed: Samuel Mcneil MD at 8:17 EST , Service support , Operations: None Procedures: None Summary of Care Provided: The patient is a 30 year old F was admitted with right upper quadrant pain. CT scan showed possible thickening of the gallbladder wall. She had an ultrasound which showed no gallstones but she did have thickening of the gallbladder wall. There is no pericholecystic fluid or Ramesh sign. The patient had an elevated white count but with elevated lymphocytes and no left shift. Hepatitis panel was ordered and LFTs were followed. AST and ALT were mildly elevated and stayed mildly elevated throughout her stay. The second day of her stay she was started on a diet and she tolerated diet with no abdominal pain or nausea or vomiting and she said the pain completely resolved. She was discharged home and I will call her with her hepatitis panel results. I do not believe she had acute cholecystitis. Patient Problems: Active and Suspected Problems (This Medical Record has been edited. Action required.) Acute cholecystitis (Acute) Epigastric pain (Acute) - Physical Exam Vitals/I&O's: Vital Signs Temp Pulse Resp BP Pulse Ox 98 F 63 16 133/62 H 97 04/28/20 02:21 04/28/20 02:21 04/28/20 02:21 04/28/20 02:21 04/28/20 02:21 Oxygen Delivery Method Room Air Weight: 268 lb 11.896 oz Body Mass Index (BMI) 42.0 Intake and Output for Last 24 Hours 04/26/20 04/27/20 04/28/20 23:59 23:59 23:59 Intake Total 3826.67 / 3826.67 350 / 350 Output Total 900 / 900 1000 / 1000 Balance 2926.67 / 2926.67 -650 / -650 General: Alert, Oriented x3 Lungs: Normal air movement Cardiovascular: Regular rate, Regular Rhythm Abdomen: Soft, Non Tender, Non-Distended Laboratory Results 04/28/20 05:27: WBC 7.9, RBC 4.11 L, Hgb 11.5 L, Hct 36.2 L, MCV 88.1, MCH 28.0, MCHC 31.8 L, RDW Std Deviation 43.7, RDW Coeff of Dejan 13.4, Plt Count 200, MPV 9.5, Immature Gran % (Auto) 0.100, Neut % (Auto) 15.6 L, Lymph % (Auto) 74.7 H, [place] % (Auto) 8.6, Eos % (Auto) 0.4, Baso % (Auto) 0.6, Absolute Neuts (auto) 1.2 L, Absolute Lymphs (auto) 5.92 H, Nucleated RBC % 0, Differential Comment SCANNED, Reactive Lymphocytes 2+ 04/28/20 05:27: Sodium 139, Potassium 3.8, Chloride 110 H, Carbon Dioxide 23.0, Anion Gap 6, BUN 9, Creatinine 0.82, Estim Creat Clear Calc 95.78, Est GFR (MDRD) Af Amer 103, Est GFR (MDRD) Non-Af 85, BUN/Creatinine Ratio 10.9, Glucose 81, Calcium 8.4 L, Total Bilirubin 0.40, AST 55 H, ALT 88 H, Alkaline Phosphatase 91, Total Protein 6.1 L, Albumin 2.8 L, Globulin 3.3, Albumin/Globulin Ratio 0.8 L Current Medications Acetaminophen (Acetaminophen 325 Mg Tablet) 650 mg PO Q4H PRN PRN PRN Reason: Pain 1-10 or Fever Last Admin: 04/27/20 20:50 Dose: 650 mg Documented by: Albuterol Sulfate (Albuterol 2.5 Mg/3 Ml Vial.Neb.) 2.5 mg INHALATION Q4H PRN PRN PRN Reason: SOB &/OR WHEEZING Bupropion HCl (Bupropion (Xl) 150 Mg Tablet.Xl) 150 mg PO BID [facility] Last Admin: 04/27/20 21:35 Dose: 150 mg Documented by: Duloxetine HCl (Duloxetine Hcl 60 Mg Capsule) 60 mg PO DAILY [facility] Last Admin: 04/27/20 10:36 Dose: 60 mg Documented by: Gabapentin (Gabapentin 100 Mg Capsule) 100 mg PO TID [facility] Last Admin: 04/28/20 05:36 Dose: 100 mg Documented by: Sodium Chloride () 1,000 mls @ 100 mls/hr IV .Q10H [facility] Last Admin: 04/28/20 02:26 Dose: 100 mls/hr Documented by: Piperacillin Sod/Tazobactam (Sod 3.375 gm/ Sodium Chloride) 50 mls @ 12.5 mls/hr IV Q8 [facility] Last Admin: 04/28/20 05:36 Dose: 12.5 mls/hr Documented by: Sodium Chloride () 250 mls @ 15 mls/hr IV .[id number] PRN PRN Reason: Saline Flush Sodium Chloride () 250 mls @ 15 mls/hr IV .[id number] PRN PRN Reason: Additional IVPB Infusion Loratadine (Loratadine 10 Mg Tablet) 10 mg PO DAILY [facility] Last Admin: 04/27/20 10:35 Dose: 10 mg Documented by: Metaxalone (Metaxalone 800 Mg Tablet) 800 mg PO DAILY [facility] Last Admin: 04/27/20 10:42 Dose: 800 mg Documented by: Montelukast Sodium (Montelukast 10 Mg Tablet) 10 mg PO DAILY [facility] Last Admin: 04/27/20 21:35 Dose: 10 mg Documented by: Morphine Sulfate (Morphine 2 Mg/Ml Syringe) 2 - 4 mg IV Q2H PRN PRN PRN Reason: Pain Score 4-10 Non-Formulary Medication (Norgestimate-Ethinyl Estradiol [Tri-Sprintec Tablet]) 1 ea PO DAILY [facility] Non-Formulary Medication (Sumatriptan [Imitrex]) 20 mg NS PRN PRN PRN Reason: migraines Ondansetron HCl (Ondansetron 4 Mg/2 Ml Vial) 4 mg IV Q6H PRN PRN PRN Reason: NAUSEA Pantoprazole Sodium (Pantoprazole Sodium 40 Mg Tablet) 40 mg PO DAILY [facility] Last Admin: 04/27/20 10:36 Dose: 40 mg Documented by: Sodium Chloride (0.9% Saline Lock 10 Ml Syringe) 10 - 40 ml IV UD PRN PRN Reason: SALINE FLUSH Discharge Activity: Return to Normal Activity Call your doctor if you observe: Fever of 101 or Higher, Uncontrolled pain Home Medications: Medications to take at Discharge Albuterol IH (ProAir) [Proair Hfa] 1 - 2 puff INHALATION Q6H PRN PRN 04/07/19 Bupropion HCl [Bupropion Xl] 150 mg PO BID 04/07/19 Cholecalciferol (VIT D3) [Vitamin D3] 1,000 unit PO BID 04/07/19 Duloxetine Hcl [Cymbalta] 60 mg PO QHS 04/07/19 Fluticasone Propion/Salmeterol [Wixela 250-50 Inhub] 1 puff IH DAILY 04/07/19 Loratadine [Claritin] 10 mg PO DAILY 04/07/19 Metaxalone [Skelaxin] 800 mg PO QHS 04/07/19 Montelukast [Singulair] 10 mg PO QHS 04/07/19 Norgestimate-Ethinyl Estradiol [Tri-Sprintec Tablet] 1 ea PO QHS 04/07/19 Ranitidine HCl [Zantac 75] 75 mg PO BID 04/07/19 Sumatriptan [Imitrex] 20 mg NS PRN PRN 04/07/19 Gabapentin 100 mg PO TID 04/27/20 Primary Care Physician: John Greenfield DO [Primary Care Provider] - Please Follow Up With: Pravin Hernandez MD When: Call office tomorrow for lab results [phone] Medical Necessity - Tobacco Use Smoking Status: Never smoker Meaningful Use Info Meaningful Use Diagnoses (Choose all that apply): None applicable
[2020-04-28 09:43] VITALS: BP 129/78; PULSE 78; RESP 18; TEMP 37; O2SAT 97
--- NOTE | 2020-04-28 09:51 | NURSING ---
Pt does not want to take her scheduled morning meds this morning since she is going home. She will take them at home.
[2020-04-29 08:06] LABS: HEPATITIS B SURFACE AG Negative (Negative); Hepatitis A IgM Antibody Negative (Negative); Hepatitis B Core AB IgM Negative (Negative)
[2020-04-29 12:56] LABS: Hep C Antibodies <0.1 s/co ratio (0.0-0.9)
== END 2020-04-28 10:10 | disposition home or self-care (01) ==
LOC: ED 03:43 → MS3 04:02
PROVIDERS: Admitting Provider Surgery; Emergency Provider Emergency Medicine; PCP Student in an Organized Health Care Education/Training Program; Visit Provider Surgery
DX: K80.00 Calculus of gallbladder with acute cholecystitis without obstruction (principal)
CPT/HCPCS: 36415; 74176; 76705; 80048; 80053; 80074; 80076; 81001; 83690; 84703; 85025; 96361; 96365; 96366; 96375; 99218; 99284; J7030; A4216; G0378; J2405

== ENCOUNTER → 2020-08-13 | Outpatient (CLI) | payer OTHER, SELFPAY ==
[2020-04-27 05:02] VITALS: BMI 42.0
== END | disposition home or self-care (01) ==
LOC: LABSPEC 15:27
PROVIDERS: PCP Student in an Organized Health Care Education/Training Program; Referring Provider Otolaryngology; Visit Provider Otolaryngology
DX: J03.90 Acute tonsillitis, unspecified (principal)
CPT/HCPCS: 87070

== ENCOUNTER 2020-10-10 05:36 | Emergency (ER) | payer OTHER, SELFPAY ==
[2020-04-27 05:02] VITALS: BMI 42.0
[2020-10-10 05:39] VITALS: BP 153/93; PULSE 97; RESP 18; TEMP 36.4; O2SAT 98; BMI 38.5
[2020-10-10 06:00] LABS: Absolute Lymphocyte Count 4.36 X10^3/uL (0.83-4.51); Absolute Neutrophil Count 5.4 X10^3/uL (2.0-7.7); Basophil# 0.07 X10^3/uL; Basophil% 0.7 % (0-1); Eosinophil# 0.09 X10^3/uL; Eosinophils% 0.9 % (0-5); Hematocrit 39.7 % (37-47); Lymphocyte # 4.36 X10^3/ul (0.83-4.51); Lymphocyte % 41.2 % (19-41); Mean Corp Hgb Conc 32.7 g/dL (32-36); Mean Corpuscular Volume 88.6 fL (81-99); Mean Platelet Vol. 8.5 fl (6.2-12.0); Monocyte# 0.63 X10^3/uL; NRBC Flagged by Analyzer 0 % (0-5); Neutrophil # 5.39 X10^3/uL (2.7-7.7); Neutrophil % 50.9 % (47-70); Platelet Count 316 K/mm3 (150-450); RBC Distribution Width SD 38.8 fl (35.1-43.9); Red Blood Count 4.48 M/mm3 (4.2-5.4); White Blood Count 10.6 K/mm3 (4.4-11.0)
[2020-10-10 06:05] LABS: Bacteria 0 SEEN /hpf (None Seen); Color, Urine Yellow (Yellow); Glucose, Dipstick Normal (Normal); Ketone-Dipstick 5 mg/dl (Negative); Leukocyte Esterase-Dipstick 25 /ul (Negative); Mucous, Urine 0 SEEN /hpf (<or=2+); Nitrite-Dipstick Negative (Negative); Occult Blood-Urine 10 /ul (Negative); Protein-Dipstick Negative (Negative); Urine Clarity Clear (Clear); Urine Urobilinogen Normal (Normal)
[2020-10-10 06:12] LABS: Internal QC Validated? YES +Cl - CLEAR BKGD; Pregnancy, Urine Negative Negative; Red Blood Cells-Urine 0-5 SEEN /hpf (0-5); Squamous Epithelial Cells - UA 0-5 SEEN /hpf (5-10); Urine Bilirubin Dipstick 1 mg/dL (Negative); White Blood Cells 0-5 SEEN /hpf (0-5)
[2020-10-10 06:19] LABS: AST(SGOT) 15 U/L (15-37); Alanine Aminotransfer ALT/SGPT 21 U/L (13-56); Albumin, Serum 3.4 g/dL (3.2-5.0); Alkaline Phosphatase 74 U/L (45-117); Anion Gap 6 (5-15); BUN 12 mg/dL (7-18); BUN/Creat Ratio 11.9 RATIO (10-20); Bilirubin, Direct 0.08 mg/dL (0.00-0.30); Calcium,Total 8.8 mg/dL (8.5-10.1); Chloride 105 mmol/L (98-107); Creatinine, Serum 1.01 mg/dL (0.55-1.02); EST Glomerular Filtration Rate 67 mL/min (>60); Est Glom Filt Rate - Afr Amer 81 mL/min (>60); Estimated Creatinine Clearance 77.76 ml/min; Globulin 4.2 g/dL (2.2-4.2); Glucose 92 mg/dL (74-106); Lipase 107 U/L (73-393); Potassium 3.5 mmol/L (3.5-5.1); Protein, Total 7.6 g/dL (6.4-8.2); Sodium Level 138 mmol/L (136-145)
[2020-10-10] MEDS: Ondansetron 4 MG/2 ML Vial IV (06:21)
[2020-10-10] MEDS: Ketorolac 15 MG/ML Vial IV (06:21)
--- NOTE | 2020-10-10 06:32 | CT_ITS ---
STUDY: CT ABDOMEN AND PELVIS WITH CONTRAST REASON FOR EXAM: Female, 30 years old. epigastric/ruq pain RADIATION DOSAGE (If Supplied By Facility): CTDIvol = ( 16.19 ) mGy, DLP = ( 1102.66 ) mGycm TECHNIQUE: Transaxial images were obtained from the dome of the diaphragm to the symphysis pubis without oral contrast. IV 100mL Isovue-300 was administered. Sagittal and coronal images were reconstructed. Individualized dose optimization techniques were used for this CT. COMPARISON: 04/27/2019 CT scan abdomen and pelvis FINDINGS: The visualized lung bases are unremarkable. The visualized portions of the heart are within normal limits. Normal liver. Normal gallbladder and extrahepatic biliary system. Normal spleen. Normal pancreas. Normal bilateral adrenal glands. There is mild right renal pelviectasis. Normal left kidney. Normal visualized stomach. There is a non digested appearing tablet within the small bowel. There is abundant stool in the colon. There are a few diverticula present without evidence of diverticulitis. There is non-visualization of the appendix. Normal abdominal aorta. Normal inferior vena cava. Normal retroperitoneum. Normal urinary bladder. Normal visualized uterus. Normal abdominal wall. There is minimal degenerative change in the thoracolumbar spine. CT/Abdomen/Pelvis W IV Cont ONLY IMPRESSION: Constipation. There are few non digested tablets within the small and large bowel. This is versus less likely foreign bodies. No hydronephrosis. Contracted gallbladder. The appendix is not seen with certainty. Electronically Signed: Tresa Barakat MD at 7:25 EDT Tel , Service support ,
--- NOTE | 2020-10-10 06:33 | EDS_ITS ---
HPI History of Present Illness Chief Complaint: Abd Pain Informant: patient Narrative Narrative: Patient is a 30-year-old female presenting with 3 days of abdominal pain. She states it is in her epigastric/her left upper quadrant but radiates to her back into her right upper quadrant. She states she had similar symptoms earlier this year and was told she had a liver infection. To review shows the patient was initially admitted for acute cholecystitis but later felt to has some type of hepatitis. She does not have any surgery. She states the pain feels similar to her prior episode however it has been more gradual in onset. She did not follow-up after her discharge from the hospital because she states she could not get into see her primary care doctor. She has some associated nausea. She has tried [id number] Colace, Tylenol and Pepto-Bismol with no relief of her symptoms. She knows she does suffer from chronic constipation and that is unchanged. She states that the pain is aching in nature and constant. It is more severe after eating or when she lays down. Is better when she stands up. No other complaints at this time. [facility] Medical History Anxiety Asthma Migraines Home Medications albuterol sulfate 1 - 2 puff INHALATION Q6H PRN PRN 04/07/19 [History Last Taken Unknown] bupropion HCl 150 mg PO BID 04/07/19 [History Last Taken 04/26/20] cholecalciferol (vitamin D3) 1,000 unit PO BID 04/07/19 [History Last Taken 04/26/20] duloxetine 60 mg PO QHS 04/07/19 [History Last Taken 04/25/20] fluticasone propion-salmeterol 1 puff IH DAILY 04/07/19 [History Last Taken 04/26/20] loratadine 10 mg PO DAILY 04/07/19 [History Last Taken 04/26/20] metaxalone 800 mg PO QHS 04/07/19 [History Last Taken 04/25/20] montelukast 10 mg PO QHS 04/07/19 [History Last Taken 04/25/20] norgestimate-ethinyl estradiol 1 ea PO QHS 04/07/19 [History Last Taken 04/25/20] ranitidine HCl 75 mg PO BID 04/07/19 [History Last Taken 04/26/20] sumatriptan 20 mg NS PRN PRN 04/07/19 [History Last Taken Unknown] gabapentin 100 mg PO TID 04/27/20 [History Last Taken 04/26/20] ondansetron HCl [Zofran] 4 mg PO Q6H PRN #12 tab 10/10/20 [Rx Last Taken Unknown] pantoprazole 20 mg PO DAILY #14 tab 10/10/20 [Rx Last Taken Unknown] Allergy/AdvReac Type Severity Reaction Status Date / Time No Known Allergies Allergy Verified 10/10/20 05:42 Surgical History H/O foot surgery Social History Smoking Status: Never smoker ROS ROS ED Constitutional Constitutional ED: Denies chills or fever(s) ENT ENT ED: Denies ear pain or sore throat Cardiovascular Cardiovascular: Denies chest pain or palpitations Respiratory/Chest Respiratory/Chest: Denies cough or dyspnea Gastrointestinal Gastrointestinal: Reports abdominal pain, constipation and nausea; Denies diarrhea or vomiting Genitourinary Genitourinary ED: Denies dysuria or hematuria Musculoskeletal Musculoskeletal: Denies arthralgias or myalgias Integumentary Denies Abrasions or rash Neurologic Neurologic: Denies headache(s) or weakness EXAM Physical Exam Const Vital Signs: 10/10/20 05:39 Temperature 97.6 F L Temperature Source Temporal Pulse Rate 97 Respiratory Rate 18 Blood Pressure 153/93 H Blood Pressure Mean 113 Pulse Ox 98 Positive well nourished and well developed General Appearance ED: well developed HEENT Reports moist mucous membranes Negative for trauma Eyes PERRL and EOMs intact bilaterally Neck supple and no JVD Chest Wall inspection of chest normal Resp normal respiratory effort and clear to auscultation bilaterally Cardio regular rate, regular rhythm and no murmurs GI non-distended Auscultation: hypoactive bowel sounds Palpation: soft and tender epigastric and RLQ Back/Spine no CVA tenderness Extremity normal to inspection General Extremety ED: Negative for edema General Extremity: Negative for edema Neuro oriented x3 Neuro Narrative: No focal deficits appreciated Sensorium / Orientation: alert Psych mental status grossly normal Skin no rashes or lesions noted MDM MDM MDM Narrative Medical decision making narrative: Patient evaluated 3 days of abdominal pain. She previously was diagnosed with hepatitis but is not clear what kind. Patient is given IV fluids, Toradol and Zofran in the ER. Her CBC is grossly normal as well as her BMP, lipase and her liver panel. Urinalysis is unremarkable. Will obtain CT of abdomen pelvis for further evaluation of this abdominal pain. Work-up is largely negative. No signs of acute infection on lab work. AST ALT document phosphatase are normal. No electrolyte abnormalities. CT the abdomen and pelvis does not show any acute process. There is no good visualization of the appendix however I have a low clinical suspicion of this. Gallbladder is contracted but there is no noted pericholecystic fluid or gallbladder wall thickening on the CT. Given her normal work-up I think she can follow-up outpatient with Dr. Hernandez, surgery, as this is who she previously saw. Patient does have a large amount of stool and states that she only has 1-2 hard bowel movements week. She is counseled to increase her MiraLAX use to daily until she is having daily bowel movement. She does have improvement of symptoms in the ER and will be discharged home with a prescription for Zofran. She is also counseled that this could be some type of gastritis/peptic ulcer disease. She takes Zantac but will be switched to a PPI to trial to see if this helps with her symptoms. Patient is counseled on signs and symptoms requiring return to the emergency room. Patient verbalizes agreement and understand this plan. Patient discharged home in stable and improved condition. Lab Data Attestation: I reviewed the patient's lab results. Labs: Laboratory Results - last 24 hr 10/10/20 10/10/20 10/10/20 05:55 05:55 06:00 WBC 10.6 RBC 4.48 Hgb 13.0 Hct 39.7 MCV 88.6 MCH 29.0 MCHC 32.7 RDW Std Deviation 38.8 RDW Coeff of Dejan 12.0 Plt Count 316 MPV 8.5 Immature Gran % (Auto) 0.300 Neut % (Auto) 50.9 Lymph % (Auto) 41.2 H [place] % (Auto) 6.0 Eos % (Auto) 0.9 Baso % (Auto) 0.7 Absolute Neuts (auto) 5.4 Absolute Lymphs (auto) 4.36 Nucleated RBC % 0 Sodium 138 Potassium 3.5 Chloride 105 Carbon Dioxide 27.0 Anion Gap 6 BUN 12 Creatinine 1.01 Estim Creat Clear Calc 77.76 Est GFR (MDRD) Af Amer 81 Est GFR (MDRD) Non-Af 67 BUN/Creatinine Ratio 11.9 Glucose 92 Calcium 8.8 Total Bilirubin 0.30 Direct Bilirubin 0.08 AST 15 ALT 21 Alkaline Phosphatase 74 Total Protein 7.6 Albumin 3.4 Globulin 4.2 Lipase 107 Urine Color Yellow Urine Clarity Clear Urine pH 6.0 Ur Specific [place] 1.020 Urine Protein Negative Urine Glucose (UA) Normal Urine Ketones 5 H Urine Occult Blood 10 H Urine Nitrite Negative Urine Bilirubin 1 H Urine Urobilinogen Normal Ur Leukocyte Esterase 25 H Urine RBC 0-5 SEEN Urine WBC 0-5 SEEN Ur Squamous Epith Cells 0-5 SEEN Urine Bacteria 0 SEEN Urine Mucus 0 SEEN Urine Test Negative Radiography Diagnostic Testing: Radiology Impression Abdomen/Pelvis CT 10/10/20 06:32 IMPRESSION: Constipation. There are few non digested tablets within the small and large bowel. This is versus less likely foreign bodies. No hydronephrosis. Contracted gallbladder. The appendix is not seen with certainty. Electronically Signed: Tresa Barakat MD at 7:25 EDT Tel , Service support , Discharge Plan Triage Chief Complaint: Abd Pain ED Provider: Halie Thompson Dx/Rx/DC Orders Clinical Impression: Epigastric pain Instructions: ED Abdominal Pain Unkn Cause Fem Prescriptions: New ondansetron HCl [Zofran] 4 mg tablet 4 mg PO Q6H PRN (Reason: nausea and vomiting) Qty: 12 RF: 0 pantoprazole 20 mg tablet,delayed release (DR/EC) 20 mg PO DAILY Qty: 14 RF: 0 No Action fluticasone propion-salmeterol 1 EACH blister with device 1 puff IH DAILY RF: 0 ranitidine HCl 75 MG tablet 75 mg PO BID RF: 0 norgestimate-ethinyl estradiol 1 EACH tablet 1 ea PO QHS RF: 0 montelukast 10 MG tablet 10 mg PO QHS RF: 0 sumatriptan 20 MG spray,non-aerosol 20 mg NS PRN PRN (Reason: migraines) RF: 0 metaxalone 800 MG tablet 800 mg PO QHS RF: 0 bupropion HCl 150 MG tablet extended release 24 hr 150 mg PO BID RF: 0 duloxetine 60 MG capsule 60 mg PO QHS RF: 0 cholecalciferol (vitamin D3) 1,000 UNIT tablet 1,000 unit PO BID RF: 0 loratadine 10 MG capsule 10 mg PO DAILY RF: 0 albuterol sulfate 1 PUFF inhaler 1 - 2 puff inhalation Q6H PRN PRN (Reason: Sob &/Or Wheezing) RF: 0 gabapentin 300 MG capsule 100 mg PO TID RF: 0 Primary Care Provider: John Greenfield Referrals: Pravin Hernandez MD [STAFF PHYSICIAN] - John Greenfield DO [Primary Care Provider] - Activity Restrictions/Additional Instructions: Start taking MiraLAX daily until you are having regular daily bowel movements. Switch from ranitidine to pantoprazole which was prescribed today. Follow-up with Dr. Hernandez, for further evaluation of your abdominal pain. Return if you have worsening symptoms. Disposition Disposition: Home, self care
== END 2020-10-10 08:30 | disposition home or self-care (01) ==
PROVIDERS: Emergency Provider Emergency Medicine; PCP Student in an Organized Health Care Education/Training Program
DX: R10.13 Epigastric pain (principal); J45.909 Unspecified asthma, uncomplicated; Z79.51 Long term (current) use of inhaled steroids; Z79.899 Other long term (current) drug therapy
CPT/HCPCS: 74177; 80048; 80076; 81001; 81025; 83690; 85025; 96374; 96375; 99283; J7030; Q9967; A4216; J2405

== ENCOUNTER 2020-10-12 02:59 | Emergency (ER) | payer OTHER, SELFPAY ==
[2020-10-12 02:59] VITALS: BP 152/89; PULSE 89; RESP 18; TEMP 36; O2SAT 99; BMI 38.7
--- NOTE | 2020-10-12 03:35 | CT_ITS ---
STUDY: CT ABDOMEN AND PELVIS WITH CONTRAST REASON FOR EXAM: Female, 30 years old patient with abdominal pain. RADIATION DOSAGE (If Supplied By Facility): CTDIvol = ( 16.84 ) mGy, DLP = ( 1192.47 ) mGycm TECHNIQUE: Transaxial images were obtained from the dome of the diaphragm to the symphysis pubis without oral contrast. 100 mL of IV Isovue-370 was administered. Sagittal and coronal images were reconstructed. Individualized dose optimization techniques were used for this CT. COMPARISON: CT abdomen and pelvis dated 10/10/2020. FINDINGS: The visualized lung bases are unremarkable. The visualized portions of the heart are within normal limits. Normal liver. Normal gallbladder and extrahepatic biliary system. Normal spleen. Normal pancreas. Normal bilateral adrenal glands. Normal right kidney. Normal left kidney. Normal visualized stomach. There is fluid filled small bowel which is mildly distended. This suggests possible sequela of acute infectious or inflammatory enteritis. The cecum is now located within the central abdomen having moved since the previous study. There is some fecal stasis in the cecum. There appears to be mild thickening of the leon of the descending colon and sigmoid colon in part secondary to nondistention but also could be secondary to acute infectious or inflammatory colitis. Colon otherwise has a grossly normal appearance. There is non-visualization of the appendix. Normal abdominal aorta. Normal inferior vena cava. Normal retroperitoneum. Normal urinary bladder. Normal visualized uterus. Normal abdominal wall. Normal osseous structures. CT/Abdomen/Pelvis W IV Cont ONLY IMPRESSION: 1. Findings suggest sequela of acute infectious or inflammatory enteritis and possible descending colon colitis. 2. Mobile cecum with fecal stasis in the cecum. Electronically Signed: Mana Keys MD at 5:25 EDT , Service support ,
--- NOTE | 2020-10-12 03:36 | ED.VIS.GI ---
HPI HPI - GI History of Present Illness Chief Complaint: Abd Pain Narrative Narrative: 30-year-old female presenting with abdominal pain. This is similar in nature to her previous visits. She describes it as a left upper quadrant radiating in all directions. She states this current episode has been going on for 4 days. She states they initially thought that she had gallbladder disease but after being admitted they determined that it was not. She had a hepatitis panel which was negative. She is not followed up outpatient with surgeon yet. Patient denies any fever but admits to nausea. Denies urinary symptoms. Patient does state that she only has 2 bowel movements a week. On her last CT of the abdomen and pelvis it showed that she was constipated. Her mother states that she gave her a rectal exam and there was no stool in the vault. [facility] Medical History Anxiety Asthma Migraines Home Medications albuterol sulfate 1 - 2 puff INHALATION Q6H PRN PRN 04/07/19 [History Last Taken Unknown] bupropion HCl 150 mg PO BID 04/07/19 [History Last Taken 04/26/20] cholecalciferol (vitamin D3) 1,000 unit PO BID 04/07/19 [History Last Taken 04/26/20] duloxetine 60 mg PO QHS 04/07/19 [History Last Taken 04/25/20] fluticasone propion-salmeterol 1 puff IH DAILY 04/07/19 [History Last Taken 04/26/20] loratadine 10 mg PO DAILY 04/07/19 [History Last Taken 04/26/20] metaxalone 800 mg PO QHS 04/07/19 [History Last Taken 04/25/20] montelukast 10 mg PO QHS 04/07/19 [History Last Taken 04/25/20] norgestimate-ethinyl estradiol 1 ea PO QHS 04/07/19 [History Last Taken 04/25/20] ranitidine HCl 75 mg PO BID 04/07/19 [History Last Taken 04/26/20] sumatriptan 20 mg NS PRN PRN 04/07/19 [History Last Taken Unknown] gabapentin 100 mg PO TID 04/27/20 [History Last Taken 04/26/20] ondansetron HCl [Zofran] 4 mg PO Q6H PRN #12 tab 10/10/20 [Rx Last Taken Unknown] pantoprazole 20 mg PO DAILY #14 tab 10/10/20 [Rx Last Taken Unknown] Allergy/AdvReac Type Severity Reaction Status Date / Time No Known Allergies Allergy Verified 10/10/20 05:42 Surgical History H/O foot surgery Social History Smoking Status: Never smoker ROS ROS ED Constitutional Constitutional ED: Denies chills, fever(s) or subjective ENT ENT ED: Denies ear pain, rhinorrhea or sore throat Cardiovascular Cardiovascular: Denies chest pain or palpitations Respiratory/Chest Respiratory/Chest: Denies cough or dyspnea Gastrointestinal Gastrointestinal: Reports abdominal pain, constipation and nausea; Denies vomiting Genitourinary Genitourinary ED: Denies dysuria or hematuria Musculoskeletal Musculoskeletal: Denies arthralgias or myalgias Integumentary Denies abscess or rash Neurologic Neurologic: Denies headache(s), paresthesias or weakness Psychiatric Psychiatric: Denies anxiety or depression EXAM Physical Exam Const Vital Signs: 10/12/20 02:59 Temperature 96.8 F L Temperature Source Temporal Pulse Rate 89 Respiratory Rate 18 Blood Pressure 152/89 H Blood Pressure Mean 110 Pulse Ox 99 Oxygen Delivery Method Room Air Positive well nourished General Appearance ED: NAD HEENT normocephalic and atraumatic Eyes PERRL and EOMs intact bilaterally General Eye ED: Negative for scleral icterus Resp normal respiratory effort and clear to auscultation bilaterally Cardio regular rate and regular rhythm GI Palpation: soft and tender LUQ Back/Spine no CVA tenderness Neuro Sensorium / Orientation: alert and oriented to person Psych mental status grossly normal Attitude: agitated Mood & Affect: tearful Skin Lesions: no lesions Rashes: no rashes MDM MDM MDM Narrative Medical decision making narrative: Patient presenting with similar pain that she had the other day. She states his pain has been like this for 4 days. She has not had a fever. She has nausea without vomiting. Her lab work today is similar to what it was the other day. Repeat of the CT abdomen pelvis Was interpreted by the radiologist as findings suggest sequela of acute infectious or inflammatory enteritis and possible descending colon colitis. Patient has not had any kind of diarrhea, fever. This is the same pain she had the other day and she still needs to have a bowel movement. Her mother gave her an enema and did a rectal exam prior to coming. Discussed the findings with the patient and her mother and they both agreed that they will go home and try magnesium citrate. We will withhold antibiotics for now. Patient has follow-up with Dr. Hernandez. Impression: 1. Abdominal pain 2. Constipation Lab Data Attestation: I reviewed the patient's lab results. Labs: Laboratory Results - last 24 hr 10/12/20 10/12/20 10/12/20 03:47 03:47 04:45 WBC 9.3 RBC 4.32 Hgb 12.5 Hct 38.0 MCV 88.0 MCH 28.9 MCHC 32.9 RDW Std Deviation 38.8 RDW Coeff of Dejan 11.9 Plt Count 309 MPV 8.5 Immature Gran % (Auto) 0.200 Neut % (Auto) 43.7 L Lymph % (Auto) 48.4 H [place] % (Auto) 6.0 Eos % (Auto) 1.2 Baso % (Auto) 0.5 Absolute Neuts (auto) 4.1 Absolute Lymphs (auto) 4.52 H Nucleated RBC % 0 Sodium 138 Potassium 3.8 Chloride 103 Carbon Dioxide 29.0 Anion Gap 6 BUN 12 Creatinine 0.90 Estim Creat Clear Calc 87.27 Est GFR (MDRD) Af Amer 93 Est GFR (MDRD) Non-Af 77 BUN/Creatinine Ratio 13.3 Glucose 76 Calcium 8.8 Total Bilirubin 0.20 AST 22 ALT 28 Alkaline Phosphatase 79 Total Protein 7.6 Albumin 3.4 Globulin 4.2 Albumin/Globulin Ratio 0.8 L Lipase 171 Urine Color Yellow Urine Clarity Clear Urine pH 7.0 Ur Specific [place] 1.005 Urine Protein Negative Urine Glucose (UA) Normal Urine Ketones Negative Urine Occult Blood Negative Urine Nitrite Negative Urine Bilirubin Negative Urine Urobilinogen Normal Ur Leukocyte Esterase Negative Urine RBC 0 SEEN Urine WBC 0 SEEN Ur Squamous Epith Cells 0-5 SEEN Urine Bacteria 0 SEEN Urine Mucus 0 SEEN Urine Test Negative Radiography Diagnostic Testing: Radiology Impression Abdomen/Pelvis CT 10/12/20 03:35 IMPRESSION: 1. Findings suggest sequela of acute infectious or inflammatory enteritis and possible descending colon colitis. 2. Mobile cecum with fecal stasis in the cecum. Electronically Signed: Mana Keys MD at 5:25 EDT , Service support , Discharge Plan Triage Chief Complaint: Abd Pain ED Provider: Tahir Pettit Dx/Rx/DC Orders Instructions: ED Abdominal Pain Unkn Cause Fem, ED Constipation (Adult) Prescriptions: No Action fluticasone propion-salmeterol 1 EACH blister with device 1 puff IH DAILY RF: 0 ranitidine HCl 75 MG tablet 75 mg PO BID RF: 0 norgestimate-ethinyl estradiol 1 EACH tablet 1 ea PO QHS RF: 0 montelukast 10 MG tablet 10 mg PO QHS RF: 0 sumatriptan 20 MG spray,non-aerosol 20 mg NS PRN PRN (Reason: migraines) RF: 0 metaxalone 800 MG tablet 800 mg PO QHS RF: 0 bupropion HCl 150 MG tablet extended release 24 hr 150 mg PO BID RF: 0 duloxetine 60 MG capsule 60 mg PO QHS RF: 0 cholecalciferol (vitamin D3) 1,000 UNIT tablet 1,000 unit PO BID RF: 0 loratadine 10 MG capsule 10 mg PO DAILY RF: 0 albuterol sulfate 1 PUFF inhaler 1 - 2 puff inhalation Q6H PRN PRN (Reason: Sob &/Or Wheezing) RF: 0 gabapentin 300 MG capsule 100 mg PO TID RF: 0 ondansetron HCl [Zofran] 4 mg tablet 4 mg PO Q6H PRN (Reason: nausea and vomiting) Qty: 12 RF: 0 pantoprazole 20 mg tablet,delayed release (DR/EC) 20 mg PO DAILY Qty: 14 RF: 0 Primary Care Provider: John Greenfield Referrals: Pravin Hernandez MD [STAFF PHYSICIAN] - As soon as possible John Greenfield DO [Primary Care Provider] - Disposition Disposition: Home, self care
[2020-10-12] MEDS: Ondansetron 4 MG/2 ML Vial IV (03:51)
[2020-10-12] MEDS: 0.9% Normal Saline 1,000 ML 1000 ML IV (03:51)
[2020-10-12 03:52] LABS: Absolute Lymphocyte Count 4.52 X10^3/uL (0.83-4.51); Absolute Neutrophil Count 4.1 X10^3/uL (2.0-7.7); Basophil# 0.05 X10^3/uL; Basophil% 0.5 % (0-1); Eosinophil# 0.11 X10^3/uL; Eosinophils% 1.2 % (0-5); Hemoglobin 12.5 g/dL (12.0-15.0); Lymphocyte # 4.52 X10^3/ul (0.83-4.51); Lymphocyte % 48.4 % (19-41); Mean Corp Hgb Conc 32.9 g/dL (32-36); Mean Corpuscular Hgb 28.9 pg (27.0-32.0); Mean Platelet Vol. 8.5 fl (6.2-12.0); Monocyte# 0.56 X10^3/uL; NRBC Flagged by Analyzer 0 % (0-5); Neutrophil # 4.07 X10^3/uL (2.7-7.7); Neutrophil % 43.7 % (47-70); Platelet Count 309 K/mm3 (150-450); RBC Distribution Width CV 11.9 % (11.6-14.6); RBC Distribution Width SD 38.8 fl (35.1-43.9); Red Blood Count 4.32 M/mm3 (4.2-5.4); White Blood Count 9.3 K/mm3 (4.4-11.0)
[2020-10-12] MEDS: Morphine 4 MG/ML Syringe IV (03:52)
[2020-10-12 04:08] LABS: ALB/GLOB Ratio 0.8 RATIO (0.9-2.4); AST(SGOT) 22 U/L (15-37); Alanine Aminotransfer ALT/SGPT 28 U/L (13-56); Albumin, Serum 3.4 g/dL (3.2-5.0); Alkaline Phosphatase 79 U/L (45-117); Anion Gap 6 (5-15); BUN 12 mg/dL (7-18); BUN/Creat Ratio 13.3 RATIO (10-20); Calcium,Total 8.8 mg/dL (8.5-10.1); Chloride 103 mmol/L (98-107); EST Glomerular Filtration Rate 77 mL/min (>60); Est Glom Filt Rate - Afr Amer 93 mL/min (>60); Estimated Creatinine Clearance 87.27 ml/min; Globulin 4.2 g/dL (2.2-4.2); Glucose 76 mg/dL (74-106); Lipase 171 U/L (73-393); Potassium 3.8 mmol/L (3.5-5.1); Protein, Total 7.6 g/dL (6.4-8.2); Sodium Level 138 mmol/L (136-145)
[2020-10-12 04:55] LABS: Bacteria 0 SEEN /hpf (None Seen); Mucous, Urine 0 SEEN /hpf (<or=2+); Red Blood Cells-Urine 0 SEEN /hpf (0-5); White Blood Cells 0 SEEN /hpf (0-5)
[2020-10-12 04:58] LABS: Color, Urine Yellow (Yellow); Glucose, Dipstick Normal (Normal); Ketone-Dipstick Negative (Negative); Leukocyte Esterase-Dipstick Negative /ul (Negative); Nitrite-Dipstick Negative (Negative); Occult Blood-Urine Negative /ul (Negative); Protein-Dipstick Negative (Negative); Specific Gravity, Urine 1.005 (1.002-1.030); Urine Bilirubin Dipstick Negative (Negative); Urine Clarity Clear (Clear); Urine Urobilinogen Normal (Normal)
[2020-10-12 05:08] LABS: Internal QC Validated? YES +Cl - CLEAR BKGD; Pregnancy, Urine Negative Negative
[2020-10-12 05:13] LABS: Squamous Epithelial Cells - UA 0-5 SEEN /hpf (5-10)
[2020-10-12 06:34] VITALS: BP 139/84; PULSE 98; RESP 16; O2SAT 100
[2020-10-12] MEDS: Magnesium Citrate 300 ML PO (06:35)
== END 2020-10-12 06:35 | disposition home or self-care (01) ==
PROVIDERS: Emergency Provider Student in an Organized Health Care Education/Training Program; PCP Student in an Organized Health Care Education/Training Program
DX: R10.9 Unspecified abdominal pain (principal); K59.00 Constipation, unspecified; J45.909 Unspecified asthma, uncomplicated; Z79.899 Other long term (current) drug therapy
CPT/HCPCS: 74177; 80053; 81001; 81025; 83690; 85025; 96361; 96374; 96375; 99284; A4216; J2405

== ENCOUNTER 2020-10-13 05:29 | Emergency (ER) | payer OTHER, SELFPAY ==
[2020-10-12 02:59] VITALS: BMI 38.7
[2020-10-13 05:30] VITALS: BP 160/100; PULSE 103; RESP 22; TEMP 36.6; O2SAT 99; BMI 40.4
--- NOTE | 2020-10-13 05:32 | CT_ITS ---
EXAM: CT ABDOMEN AND PELVIS WITH INTRAVENOUS CONTRAST CLINICAL INDICATION: abdominal pain -- IV PO Contrast TECHNIQUE: Helically acquired images were obtained of the abdomen and pelvis with intravenous contrast. This CT exam was performed using one or more of the following dose reduction techniques: automated exposure control, adjustment of the mA and/or kV according to patient size, and/or use of iterative reconstruction technique. This report was created using Caption Data report generation technology. CONTRAST: Oral and amp; IV Gastrografin and amp; 100mL Isovue-370 COMPARISON: CT abdomen and pelvis with contrast 10/12/2020. FINDINGS: LOWER THORAX: Unremarkable. Lung bases are clear. No cardiomegaly. No significant pericardial effusion. ABDOMEN: LIVER: Mild hepatomegaly measuring 19.6 cm long. This is unchanged. GALLBLADDER AND BILE DUCTS: Unremarkable. No calcified gallstones. No gallbladder distention or wall edema. No intra- or extrahepatic biliary ductal dilation. PANCREAS: Unremarkable. No focal cystic or solid mass. SPLEEN: Unremarkable. Normal size without focal cystic or solid mass. ADRENALS: Unremarkable. No nodules. KIDNEYS AND URETERS: Unremarkable. Normal renal size and position. No hydronephrosis. STOMACH AND BOWEL: Contrast-filled small intestine. Fecal contents in the cecum, ascending colon and transverse colon. Minimal contrast in the sigmoid colon. No intramural edema or thickening of the descending colon or sigmoid colon. No stomach or bowel distention. PELVIS: APPENDIX: Nonvisualization of the appendix but no secondary signs of acute appendicitis.. BLADDER: Unremarkable. REPRODUCTIVE: Unremarkable as visualized. No mass. ABDOMEN and PELVIS: INTRAPERITONEAL SPACE: Unremarkable. No ascites or other fluid collection. No free air. BONES/JOINTS: Unremarkable. No suspicious lytic or blastic abnormality. SOFT TISSUES: Unremarkable. No discrete abdominal or pelvic wall hernia. VASCULATURE: Unremarkable. Abdominal aorta is non-dilated. LYMPH NODES: Unremarkable. No enlarged lymph nodes. CT/Abdomen/Pelvis WITH Contrast IMPRESSION: 1. No acute findings in the abdomen or pelvis. 2. Mild hepatomegaly is unchanged. 3. Nonvisualization of the appendix but no secondary signs of acute appendicitis. 4. Clearing of previously described intramural edema/thickening of the descending colon and sigmoid colon. 5. Floppy cecum which is now in the right side of the lower abdomen, previously central. 6. No other additional findings or changes. Electronically Signed: Samuel Mcneil MD at 8:35 EDT , Service support ,
--- NOTE | 2020-10-13 05:33 | EDS_ITS ---
HPI HPI - GI History of Present Illness Chief Complaint: Flank Pain Narrative Narrative: 30-year-old female presenting for the third time this week for left- sided abdominal and flank pain. She is already had 2 CTs. I saw her on the previous visit and she stated that she only had 2 bowel movements a week and previously was noted she had lots of constipation on her CT. She had still not had a bowel movement. After working her up last time we ultimately determined she would go home with magnesium citrate and see if this helps. Patient states that she had multiple bowel movements and the pain was manageable for a while and now she is in excruciating pain in the same place she was tender before. She denies a fever. She has nausea without vomiting. [facility] Medical History Anxiety Asthma Migraines Home Medications albuterol sulfate 1 - 2 puff INHALATION Q6H PRN PRN 04/07/19 [History Last Taken Unknown] bupropion HCl 150 mg PO BID 04/07/19 [History Last Taken 04/26/20] cholecalciferol (vitamin D3) 1,000 unit PO BID 04/07/19 [History Last Taken 04/26/20] duloxetine 60 mg PO QHS 04/07/19 [History Last Taken 04/25/20] fluticasone propion-salmeterol 1 puff IH DAILY 04/07/19 [History Last Taken 04/26/20] loratadine 10 mg PO DAILY 04/07/19 [History Last Taken 04/26/20] metaxalone 800 mg PO QHS 04/07/19 [History Last Taken 04/25/20] montelukast 10 mg PO QHS 04/07/19 [History Last Taken 04/25/20] norgestimate-ethinyl estradiol 1 ea PO QHS 04/07/19 [History Last Taken 04/25/20] ranitidine HCl 75 mg PO BID 04/07/19 [History Last Taken 04/26/20] sumatriptan 20 mg NS PRN PRN 04/07/19 [History Last Taken Unknown] gabapentin 100 mg PO TID 04/27/20 [History Last Taken 04/26/20] ondansetron HCl [Zofran] 4 mg PO Q6H PRN #12 tab 10/10/20 [Rx Last Taken Unknown] pantoprazole 20 mg PO DAILY #14 tab 10/10/20 [Rx Last Taken Unknown] Allergy/AdvReac Type Severity Reaction Status Date / Time No Known Allergies Allergy Verified 10/10/20 05:42 Surgical History H/O foot surgery Social History Smoking Status: Never smoker ROS ROS ED Constitutional Constitutional ED: Denies chills, fever(s) or subjective ENT ENT ED: Denies ear pain or rhinorrhea Cardiovascular Cardiovascular: Denies chest pain or palpitations Respiratory/Chest Respiratory/Chest: Denies cough or dyspnea Gastrointestinal Gastrointestinal: Reports abdominal pain Genitourinary Genitourinary ED: Denies dysuria or hematuria Musculoskeletal Musculoskeletal: Denies arthralgias or myalgias Integumentary Denies abscess or rash EXAM Physical Exam Const Vital Signs: 10/13/20 05:30 Temperature 97.9 F Temperature Source Temporal Pulse Rate 103 H Respiratory Rate 22 H Blood Pressure 160/100 H Blood Pressure Mean 120 Pulse Ox 99 Oxygen Delivery Method Room Air Positive obese General Appearance ED: NAD Nutritional Appearance: obese HEENT Reports moist mucous membranes normocephalic and atraumatic Eyes PERRL and EOMs intact bilaterally General Eye ED: Negative for scleral icterus Neck supple Resp normal respiratory effort and clear to auscultation bilaterally Cardio regular rate and regular rhythm GI non-distended Inspection: Negative for abdominal distention Palpation: soft and tender LUQ Back/Spine no CVA tenderness Back/Spine Narrative: Tenderness to palpation of left flank. Extremity full ROM General Extremety ED: Negative for edema or tenderness General Extremity: Negative for edema Neuro Sensorium / Orientation: alert and oriented to person Psych mental status grossly normal Attitude: agitated Mood & Affect: tearful Skin Lesions: no lesions Rashes: no rashes MDM MDM MDM Narrative Medical decision making narrative: Patient presenting again with this left upper quadrant left flank pain. She states that she had multiple bowel movements and the pain became improved and manageable but has acutely become worsened now. She states that the exact same pain she had on last 2 visits and has not moved. It is of the same severity. She denies any fever. She was treated with fentanyl and Zofran and IV fluids were given for her and will obtain more lab work and CT of the abdomen pelvis. Again patient's lab work is unchanged. She has a negative lactic acid. She is given 2 doses of fentanyl total so far. She is awaiting a CT of the abdomen pelvis. Patient will be signed out to incoming ED physician for follow-up on CT findings. Patient is clinically stable at this time. Impression: 1. Abdominal pain Lab Data Attestation: I reviewed the patient's lab results. Labs: Laboratory Results - last 24 hr 10/13/20 10/13/20 10/13/20 04:40 04:40 05:50 WBC 10.4 RBC 4.04 L Hgb 11.9 L Hct 36.1 L MCV 89.4 MCH 29.5 MCHC 33.0 RDW Std Deviation 40.0 RDW Coeff of Dejan 12.3 Plt Count 316 MPV 8.5 Immature Gran % (Auto) 0.200 Neut % (Auto) 44.5 L Lymph % (Auto) 47.3 H [place] % (Auto) 6.6 Eos % (Auto) 1.1 Baso % (Auto) 0.3 Absolute Neuts (auto) 4.6 Absolute Lymphs (auto) 4.90 H Nucleated RBC % 0 Sodium 138 Potassium 4.0 Chloride 105 Carbon Dioxide 27.0 Anion Gap 6 BUN 13 Creatinine 0.95 Estim Creat Clear Calc 82.67 Est GFR (MDRD) Af Amer 88 Est GFR (MDRD) Non-Af 72 BUN/Creatinine Ratio 13.7 Glucose 90 Lactic Acid 0.6 Calcium 8.5 Total Bilirubin 0.10 L AST 33 ALT 45 Alkaline Phosphatase 76 Total Protein 7.1 Albumin 3.1 L Globulin 4.0 Albumin/Globulin Ratio 0.8 L Lipase 153 Discharge Plan Triage Chief Complaint: Flank Pain ED Provider: Tahir Pettit Dx/Rx/DC Orders Prescriptions: No Action fluticasone propion-salmeterol 1 EACH blister with device 1 puff IH DAILY RF: 0 ranitidine HCl 75 MG tablet 75 mg PO BID RF: 0 norgestimate-ethinyl estradiol 1 EACH tablet 1 ea PO QHS RF: 0 montelukast 10 MG tablet 10 mg PO QHS RF: 0 sumatriptan 20 MG spray,non-aerosol 20 mg NS PRN PRN (Reason: migraines) RF: 0 metaxalone 800 MG tablet 800 mg PO QHS RF: 0 bupropion HCl 150 MG tablet extended release 24 hr 150 mg PO BID RF: 0 duloxetine 60 MG capsule 60 mg PO QHS RF: 0 cholecalciferol (vitamin D3) 1,000 UNIT tablet 1,000 unit PO BID RF: 0 loratadine 10 MG capsule 10 mg PO DAILY RF: 0 albuterol sulfate 1 PUFF inhaler 1 - 2 puff inhalation Q6H PRN PRN (Reason: Sob &/Or Wheezing) RF: 0 gabapentin 300 MG capsule 100 mg PO TID RF: 0 ondansetron HCl [Zofran] 4 mg tablet 4 mg PO Q6H PRN (Reason: nausea and vomiting) Qty: 12 RF: 0 pantoprazole 20 mg tablet,delayed release (DR/EC) 20 mg PO DAILY Qty: 14 RF: 0 Primary Care Provider: John Greenfield
[2020-10-13 05:45] LABS: Absolute Neutrophil Count 4.6 X10^3/uL (2.0-7.7); Basophil# 0.03 X10^3/uL; Basophil% 0.3 % (0-1); Eosinophil# 0.11 X10^3/uL; Eosinophils% 1.1 % (0-5); Hematocrit 36.1 % (37-47); Hemoglobin 11.9 g/dL (12.0-15.0); Lymphocyte % 47.3 % (19-41); Mean Corpuscular Hgb 29.5 pg (27.0-32.0); Mean Corpuscular Volume 89.4 fL (81-99); Mean Platelet Vol. 8.5 fl (6.2-12.0); Monocyte# 0.68 X10^3/uL; Monocyte% 6.6 % (0-10); NRBC Flagged by Analyzer 0 % (0-5); Neutrophil # 4.61 X10^3/uL (2.7-7.7); Neutrophil % 44.5 % (47-70); Platelet Count 316 K/mm3 (150-450); RBC Distribution Width CV 12.3 % (11.6-14.6); Red Blood Count 4.04 M/mm3 (4.2-5.4); White Blood Count 10.4 K/mm3 (4.4-11.0)
[2020-10-13] MEDS: fentaNYL 100 MCG/2 ML Ampul 25 MCG IV ×2 (05:50→07:32)
[2020-10-13] MEDS: 0.9% Normal Saline 1,000 ML 1000 ML IV (05:50)
[2020-10-13] MEDS: Ondansetron 4 MG/2 ML Vial IV (05:51)
[2020-10-13 06:03] LABS: ALB/GLOB Ratio 0.8 RATIO (0.9-2.4); AST(SGOT) 33 U/L (15-37); Alanine Aminotransfer ALT/SGPT 45 U/L (13-56); Albumin, Serum 3.1 g/dL (3.2-5.0); Alkaline Phosphatase 76 U/L (45-117); Anion Gap 6 (5-15); BUN 13 mg/dL (7-18); BUN/Creat Ratio 13.7 RATIO (10-20); Calcium,Total 8.5 mg/dL (8.5-10.1); Chloride 105 mmol/L (98-107); Creatinine, Serum 0.95 mg/dL (0.55-1.02); EST Glomerular Filtration Rate 72 mL/min (>60); Est Glom Filt Rate - Afr Amer 88 mL/min (>60); Estimated Creatinine Clearance 82.67 ml/min; Glucose 90 mg/dL (74-106); Lipase 153 U/L (73-393); Protein, Total 7.1 g/dL (6.4-8.2); Sodium Level 138 mmol/L (136-145)
[2020-10-13 06:21] LABS: Lactic Acid 0.6 mmol/L (0.4-1.9)
[2020-10-13] MEDS: Ketorolac 30 MG/ML Syringe IV (10:04)
[2020-10-13] MEDS: Dicyclomine 20 MG/2 ML Vial IM (10:05)
[2020-10-13] MEDS: HYDROmorphone 1 MG/ML Syringe IV (10:05)
[2020-10-13 10:10] VITALS: BP 132/82; PULSE 86; RESP 14; O2SAT 99
== END 2020-10-13 10:53 | disposition home or self-care (01) ==
PROVIDERS: Emergency Provider Student in an Organized Health Care Education/Training Program; PCP Student in an Organized Health Care Education/Training Program
DX: R10.9 Unspecified abdominal pain (principal); R11.0 Nausea; E66.9 Obesity, unspecified
CPT/HCPCS: 74177; 80053; 83605; 83690; 85025; 96372; 96374; 96375; 96376; 99283; J7030; Q9967; A4216; J2405

== ENCOUNTER 2020-10-31 06:22 | Day surgery (SDC) | payer OTHER, SELFPAY ==
[2020-10-15 08:09] VITALS: BMI 40.4
--- NOTE | 2020-10-31 06:40 | HP.PCM_ITS ---
History and Physical Date of Admission: 10/31/20 Vital Signs 10/15/20 08:09 BMI 40.4 Intake Visit Reasons: ER F/U ABDOMINAL PAIN Chief Complaint: cholecystitis Allergies No Known Allergies Allergy (Verified 10/10/20 05:42) Medications albuterol sulfate 1 - 2 puff INHALATION Q6H PRN PRN 04/07/19 [History Confirmed 10/15/20] bupropion HCl 150 mg PO BID 04/07/19 [History Confirmed 10/15/20] cholecalciferol (vitamin D3) 1,000 unit PO BID 04/07/19 [History Confirmed 10/15/20] duloxetine 60 mg PO QHS 04/07/19 [History Confirmed 10/15/20] fluticasone propion-salmeterol 1 puff IH DAILY 04/07/19 [History Confirmed 10/15/20] loratadine 10 mg PO DAILY 04/07/19 [History Confirmed 10/15/20] metaxalone 800 mg PO QHS 04/07/19 [History Confirmed 10/15/20] montelukast 10 mg PO QHS 04/07/19 [History Confirmed 10/15/20] norgestimate-ethinyl estradiol 1 ea PO QHS 04/07/19 [History Confirmed 10/15/20] ranitidine HCl 75 mg PO BID 04/07/19 [History Confirmed 10/15/20] sumatriptan 20 mg NS PRN PRN 04/07/19 [History Confirmed 10/15/20] gabapentin 100 mg PO TID 04/27/20 [History Confirmed 10/15/20] ondansetron HCl [Zofran] 4 mg PO Q6H PRN #12 tab 10/10/20 [Rx Confirmed 10/15/20] dicyclomine 20 mg PO 4X/DAY PRN PRN #20 capsule 10/13/20 [Rx Confirmed 10/15/20] oxycodone-acetaminophen 1 tab PO Q6H PRN PRN 3 Days #12 tablet 10/13/20 [Rx C onfirmed 10/15/20] pantoprazole 20 mg tablet,delayed release 20 mg PO DAILY #60 tab 10/15/20 [Rx Confirmed 10/15/20] sucralfate 1 gram tablet 1 g PO QACHS #60 tab 10/15/20 [Rx Confirmed 10/15/20] PFSH Medical History Anxiety Asthma Migraines Surgical History H/O foot surgery Family History (Updated 10/15/20 @ 08:08 by Keila Maurice) Mother Heart disease CVA (cerebral vascular accident) Social History (Updated 10/15/20 @ 08:08 by Keila Maurice) Smoking Status: Never smoker alcohol intake: current alcohol intake frequency: holidays/special occasions only HPI HPI HPI: SYD JAMIL, is a 30 F who presents to the office today for abdominal pain. The patient reports she has been having left upper quadrant pain. She has had several ER visits and several CT scans. The patient had a first CT scan that showed some thickening of the descending colon and then the next CT scan showed resolution. The patient does not report any diarrhea. ROS General General: Yes fatigue; No weight change, appetite, colon cancer, breast cancer or weakness HEENT HEENT: No difficulty swallowing, eye injury, eye surgery, swollen glands or hoarseness Endo Endocrine: No thyroid disease, diabetes mellitus, thyroid cancer, Hair loss, heat intolerance or cold intolerance Skin Skin: No rash or changing moles Breast Breast: No left breast lump, right breast lump, nipple discharge, breast pain, abnormal mammogram, abnormal US or breast enlargement Musc Musculoskeletal: Yes arthritis; No back problems, rheumatoid arthritis, gout or joint pain Cardio Cardiovascular: Yes murmur; No pacemaker, heart disease, atrial fibrillation, high blood pressure, heart attack, heart stent, palpitations, shortness of breat with exertion or chest pain Psych Psychiatric: Yes anxiety; No depression or hearing voices Resp Respiratory: No shortness of breath, No sleep apnea, No cough, No COPD, Yes asthma, No emphysema and No wheezing Gastro Gastrointestinal: Yes abdominal pain, Yes nausea or vomiting, No diarrhea, Yes constipation, No blood in stool, Yes acid reflux, Yes hemorrhoids, No ulcers, No gallbladder problem and No black,tarry stools William Hematologic: No blood thinners, No blood disorders, No bleeding, No anemia and No blood clots Neuro Neurologic: No system reviewed and no additional complaints, except as documented, No as per HPI, No abnormal gait, No abnormal hearing, No abnormal movements, No abnormal speech, No behavioral changes, No burning sensations, No confusion, No convulsions, No disequilibrium, No dizziness, No localized weakness, No frequent falls, No headache(s), No lack of coordination, No loss of vision, No memory loss, No numbness, No other visual disturbances, No radicular pain, No restless legs, No sensory deficit, No syncope, No tingling, No tremor(s), No weakness and No other Exam Const General: cooperative Orientation: alert and oriented x3 HENMT Head: normal to inspection Neck Neck: normal visual inspection and full ROM Chest Chest palpation & inspection: normal inspection of the chest Resp Effort & Inspection: normal respiratory effort Auscultation: clear to auscultation bilaterally Cardio Rate: regular rate Rhythm: regular rhythm GI Inspection: non-distended Palpation: soft and nontender Skin General: no rashes or lesions noted Neuro General: patient alert and patient oriented x3 Extrem General: full ROM Psych Appearance: grossly normal Mental Status: mental status grossly normal Assessment and Plan Assessment and Plan (1) Left sided abdominal pain: Status: Acute Orders: Orders: Colonoscopy 10/15/20 EGD 10/15/20 Plan - Dr. Pravin Hernandez MD: Patient is having left upper quadrant pain. She has been started on a PPI but reports she is still symptomatic. The patient had a CT scan showed thickening of the descending colon. I recommend EGD and colonoscopy. If these are normal then I am unsure as the cause of her left upper quadrant pain. Recommend continuing PPI. I explained endoscopy in detail to the patient. I explained the risks including but not limited to stroke or heart attack with anesthesia, perforation of the GI tract, bleeding, infection. I explained that any of these could necessitate further emergency surgery. The patient understands and all questions were answered sufficiently. The patient wishes to proceed with procedure. Pravin Hernandez MD Pager: [facility] [address] [place] [address], [address] [place] [address] Office: I have re-examined the patient. There are no clinical changes since date of exam. Assessment & Plan Assessment/Plan (1) Left sided abdominal pain:
[2020-10-31 06:47] LABS: Internal QC Validated? YES +Cl - CLEAR BKGD; Pregnancy, Urine Negative Negative
[2020-10-31 06:54] VITALS: BP 129/79; PULSE 94; RESP 20; TEMP 36.1; O2SAT 100; BMI 38.0
[2020-10-31] MEDS: Lactated Ringers 1,000 ML 100 ML IV (07:07)
--- NOTE | 2020-10-31 07:30 | IMM_PTH ---
PATIENT: SYD MOLINA LOC: EN U#:[id number] AGE/SX: 30/F ROOM: RE10/31/[address]: Dr. Pravin Hernandez MD : [id number] BED: DIS: 10/31/2020 SPEC #: [id number] RECD: 11/01/20 13:49 STATUS: GOMEZ REQ #: [id number] ROWENA: 10/31/20 07:[address]: Pravin Hernandez DEPT: IMMUNOHISTOCHEMISTRY RECD BY: Arlene Camacho ENTERED: 11/01/20 13:49 SP TYPE: IMMUNO OTHR DR: Dr. John Greenfield, DO Tissues: A - Stomach, NOS Procedures: H Pylori (initial) PHYSICIAN & INSTITUTION [place] [id number] SPECIMEN INFORMATION: Tissue Source: A ? Antrum biopsy Clinical Info: Left-sided abdominal pain Specimen Number: [id number] CPT code: 11821 METHODOLOGY: Deparaffinized sections of prefer/formalin-fixed tissue or PAP/DQ stained slides are incubated with monoclonal/polyclonal antibodies/oligonucleotide probes. Localization is made via biotin free immunoperoxidase method. Appropriate controls are performed and reacted as expected. Results on target cell population are indicated in the following table: RESULTS: ANTIBODY / CLONE RESULT Block A H Pylori (polyclonal) negative These tests were developed and their performance characteristics determined by [facility]. They may not have been cleared or approved by the U.S. Food and Drug Administration. The FDA has determined that such clearance or approval is not necessary. INTERPRETATION: A. Antrum biopsy: Negative for Helicobacter pylori organisms. AM:ric 11/05/2020
--- NOTE | 2020-10-31 07:30 | EGD_PTH ---
PATIENT: SYD MOLINA LOC: EN U#:[id number] AGE/SX: 30/F ROOM: RE10/31/[address]: Dr. Pravin Hernandez MD : 1990 BED: DIS: 10/31/2020 SPEC #: [id number] RECD: 10/31/20 14:54 STATUS: GOMEZ TUBBS #: [id number] ROWENA: 10/31/20 07:[address]: Pravin Hernandez DEPT: SURGICAL PATHOLOGY RECD BY: Laurel Lieberman ENTERED: 11/01/20 13:31 SP TYPE: EGD BIOPSY OTHR DR: Dr. John Greenfield, DO Tissues: A - Gastric mucous membrane B - Descending colon Procedures: Surgery Specimen Level IV HEADER OPERATION: Colonoscopy, EGD ([facility] [place]) PRE-OP DIAGNOSIS: Left-sided abdominal pain TISSUE SUBMITTED: A - Antrum biopsy for H. pylori and path, B - Descending colon random biopsies MICROSCOPIC DIAGNOSIS A. Antrum biopsy: Moderate gastritis. See microscopic description and comment. B. Descending colon, random biopsy: Fragments of colonic mucosa, no pathologic diagnosis. SJ:ric 11/04/2020 COMMENT A. The results of immunohistochemistry for Helicobacter pylori will be reported separately ([id number]). MICROSCOPIC DESCRIPTION Slides are reviewed. A. The specimen shows fragments of gastric mucosa with chronic inflammatory cell infiltrates in the lamina propria consisting of lymphocytes and plasma cells, consistent with moderate chronic gastritis. Minute lymphoid aggregates are also noted, favor benign. GROSS DESCRIPTION A - Received in fixative is one container labeled with the patient's name and designated antrum biopsy. The specimen consists of one irregular fragment of light cooley soft tissue that measures 0.5 x 0.2 x 0.1 cm. The specimen is totally submitted in one cassette. B - Received in fixative is one container labeled with the patient's name and designated descending colon random biopsy. The specimen consists of two irregular fragments of light cooley soft tissue that in aggregate measure 0.5 x 0.3 x 0.1 cm. The specimen is totally submitted in one cassette. / AM:ric 11/01/20 TC:3 CPT: 85668 x2
[2020-10-31 08:00] VITALS: BP 126/79; BP 129/79; PULSE 77; RESP 16; TEMP 36.2; O2SAT 100
[2020-10-31 08:05] VITALS: BP 128/79; BP 129/79; PULSE 74; RESP 16; O2SAT 100
[2020-10-31 08:10] VITALS: BP 129/79; PULSE 74; RESP 16; O2SAT 100
--- NOTE | 2020-10-31 08:10 | OP.EGD_ITS ---
Patient Name: Joanne Rosado Procedure Date: 10/31/2020 6:47 AM Date of : 1990 Age: 30 Procedure: Upper GI endoscopy Indications: Abdominal pain in the left upper quadrant Providers: Pravin Hernandez MD Referring MD: John Greenfield Medicines: Monitored Anesthesia Care Patient Profile: This is a 30 year old female. Refer to note in patient chart for documentation of history and physical. Complications: No immediate complications. Estimated blood loss: Minimal. Procedure: Pre-Anesthesia Assessment: - Prior to the procedure, a History and Physical was performed, and patient medications and allergies were reviewed. The patient's tolerance of previous anesthesia was also reviewed. The risks and benefits of the procedure and the sedation options and risks were discussed with the patient. All questions were answered, and informed consent was obtained. Prior Anticoagulants: The patient has taken no previous anticoagulant or antiplatelet agents. After reviewing the risks and benefits, the patient was deemed in satisfactory condition to undergo the procedure. After obtaining informed consent, the endoscope was passed under direct vision. Throughout the procedure, the patient's blood pressure, pulse, and oxygen saturations were monitored continuously. The gastroscope was introduced through the mouth, and advanced to the second part of duodenum. The upper GI endoscopy was accomplished without difficulty. The patient tolerated the procedure well. Scope In: 7:35:41 AM Scope Out: 7:37:47 AM Total Procedure Duration Time 0 hours 2 minutes 6 seconds Findings: The esophagus was normal. The stomach was normal. The examined duodenum was normal. Biopsies were taken with a cold forceps in the gastric antrum for Helicobacter pylori testing. Impression: - Normal esophagus. - Normal stomach. - Normal examined duodenum. - Biopsies were taken with a cold forceps for Helicobacter pylori testing. Recommendation: - Discharge patient to home. - Resume previous diet. - Continue present medications. - Await pathology results. Procedure Code(s): --- Professional --- 03385, Esophagogastroduodenoscopy, flexible, transoral; with biopsy, single or multiple Diagnosis Code(s): --- Professional --- R10.12, Left upper quadrant pain CPT copyright 2017 [employer]. All rights reserved. The codes documented in this report are preliminary and upon building code inspector review may be revised to meet current compliance requirements. Pravin Hernandez MD 10/31/2020 8:09:36 AM This report has been signed electronically. Number of Addenda: 0 Note Initiated On: 10/31/2020 6:47 AM
--- NOTE | 2020-10-31 08:11 | OP.CCLET_ITS ---
10/31/2020 John Greenfield [address] [place] [address] Re : Upper GI endoscopy procedure for Joanne Rosado Dear Dr. Greenfield This procedure was performed on October. My impressions and recommendations are as follows: Impressions : - Normal esophagus. - Normal stomach. - Normal examined duodenum. - Biopsies were taken with a cold forceps for Helicobacter pylori testing. Recommendations : - Discharge patient to home. - Resume previous diet. - Continue present medications. - Await pathology results. My findings are described in the full procedure note, which is enclosed. If I can be of further assistance, please feel free to contact me at Doctor phone number(s): , Work: . Sincerely, Pravin Hernandez MD 10/31/2020 8:09:36 AM This report has been signed electronically.
[2020-10-31 08:15] VITALS: BP 128/78; BP 129/79; PULSE 75; RESP 16; TEMP 36.2; O2SAT 100
--- NOTE | 2020-10-31 08:15 | OP.COLON_ITS ---
Patient Name: Joanne Rosado Procedure Date: 10/31/2020 7:40 AM Date of : 1990 Age: 30 Procedure: Colonoscopy Indications: Abdominal pain in the left upper quadrant Providers: Pravin Henrandez MD Referring MD: John Greenfield Medicines: Monitored Anesthesia Care Patient Profile: This is a 30 year old female. Refer to note in patient chart for documentation of history and physical. Last Colonoscopy: none. The patient's first colonoscopy is today. Complications: No immediate complications. Estimated blood loss: Minimal. Procedure: Pre-Anesthesia Assessment: - Prior to the procedure, a History and Physical was performed, and patient medications and allergies were reviewed. The patient's tolerance of previous anesthesia was also reviewed. The risks and benefits of the procedure and the sedation options and risks were discussed with the patient. All questions were answered, and informed consent was obtained. Prior Anticoagulants: The patient has taken no previous anticoagulant or antiplatelet agents. After reviewing the risks and benefits, the patient was deemed in satisfactory condition to undergo the procedure. After I obtained informed consent, the scope was passed under direct vision. Throughout the procedure, the patient's blood pressure, pulse, and oxygen saturations were monitored continuously. The pediatric colonoscope was introduced through the anus and advanced to the cecum, identified by appendiceal orifice and ileocecal valve. The colonoscopy was performed without difficulty. The patient tolerated the procedure well. The quality of the bowel preparation was good. Findings: The entire examined colon appeared normal on direct and retroflexion views. Biopsies for histology were taken with a cold forceps from the left colon for evaluation of microscopic colitis. Impression: - The entire examined colon is normal on direct and retroflexion views. - Biopsies were taken with a cold forceps from the left colon for evaluation of microscopic colitis. Recommendation: - Discharge patient to home. - Resume previous diet. - Continue present medications. - Await pathology results. - Repeat colonoscopy at age 48 for screening purposes. Procedure Code(s): --- Professional --- 67360, Colonoscopy, flexible; with biopsy, single or multiple Diagnosis Code(s): --- Professional --- R10.12, Left upper quadrant pain CPT copyright 2017 [employer] [place] [employer]. All rights reserved. The codes documented in this report are preliminary and upon photocomposing machine operator review may be revised to meet current compliance requirements. Pravin Hernandez MD 10/31/2020 8:14:54 AM This report has been signed electronically. Number of Addenda: 0 Note Initiated On: 10/31/2020 7:40 AM
--- NOTE | 2020-10-31 08:16 | OP.CCLET_ITS ---
10/31/2020 John Greenfield [address] [place] [address] Re : Colonoscopy procedure for Joanne Rosado Dear Dr. Greenfield This procedure was performed on October. My impressions and recommendations are as follows: Impressions : - The entire examined colon is normal on direct and retroflexion views. - Biopsies were taken with a cold forceps from the left colon for evaluation of microscopic colitis. Recommendations : - Discharge patient to home. - Resume previous diet. - Continue present medications. - Await pathology results. - Repeat colonoscopy at age 48 for screening purposes. My findings are described in the full procedure note, which is enclosed. If I can be of further assistance, please feel free to contact me at Doctor phone number(s): , Work: . Sincerely, Pravin Hernandez MD 10/31/2020 8:14:54 AM This report has been signed electronically.
[2020-10-31 08:20] VITALS: BP 129/79
== END 2020-10-31 08:38 ==
LOC: EN 06:22 → AC 06:23
PROVIDERS: Anesthesiology; PCP Student in an Organized Health Care Education/Training Program; Referring Provider Student in an Organized Health Care Education/Training Program; Visit Provider Surgery
PROC: 0DJD8ZZ Inspection of Lower Intestinal Tract, Via Natural or Artificial Opening Endoscopic (ICD-10-PCS; CPT 45378; principal; 2020-10-31 07:25)
DX: K29.70 Gastritis, unspecified, without bleeding (principal); K21.9 Gastro-esophageal reflux disease without esophagitis; J45.909 Unspecified asthma, uncomplicated; F41.9 Anxiety disorder, unspecified; F32.9 Major depressive disorder, single episode, unspecified; M19.90 Unspecified osteoarthritis, unspecified site; Z79.51 Long term (current) use of inhaled steroids; Z79.899 Other long term (current) drug therapy
CPT/HCPCS: 43239; 45380; 81025; 87426; 88305; 88342; C9803; J7120; J2405

== ENCOUNTER 2023-09-07 06:27 | Emergency (ER) | payer OTHER, SELFPAY ==
[2023-09-07 06:29] VITALS: BP 162/96; PULSE 112; RESP 18; TEMP 36.3; O2SAT 98; BMI 47.2
--- NOTE | 2023-09-07 07:15 | EDS_ITS ---
HPI History of Present Illness Chief Complaint: Nausea/Vomiting/Diarrhea Narrative Narrative: Presenting with vomiting and diarrhea. Patient started not feeling well 4:30 PM yesterday. She ate fresh stuffing that she made at that time. Nobody else ate this. 730 both vomiting and diarrhea. Recurrent at 11:00 yesterday. This morning additional event. No recent antibiotics. No fevers. Cramping to the lower extremities. Abdominal cramping. Denies any urinary symptoms. Denies any allergies. Has tried oral hydration at home unsuccessful. [facility] Medical History Depression Alcohol use Rash Arthritis Injury of head and neck Gastric reflux Non-smoker Shortness of breath on exertion History of irregular heartbeat Anxiety Asthma Migraines Home Medications ?Medication ?Instructions ?Recorded ?Last Taken ?Type albuterol sulfate 90 mcg/actuation 1 - 2 puff inhalation Q6H PRN PRN 04/07/19 Unknown History aerosol inhaler Sob &/Or Wheezing bupropion HCl 150 mg 24 hr tablet, 150 mg PO BID depression 04/07/19 04/26/20 History extended release cholecalciferol (vitamin D3) 25 1,000 unit PO BID supplement 04/07/19 04/26/20 History mcg (1,000 unit) tablet duloxetine 60 mg capsule,delayed 60 mg PO QHS depression 04/07/19 04/25/20 History release (Cymbalta) fluticasone 250 mcg-salmeterol 50 1 puff IH DAILY asthma 04/07/19 10/31/20 05:45 History mcg/dose blistr powdr for inhalation (Advair Diskus) loratadine 10 mg capsule 10 mg PO DAILY allergies 04/07/19 04/26/20 History metaxalone 800 mg tablet (Skelaxin) 800 mg PO QHS muscle relaxer 04/07/19 04/25/20 History montelukast 10 mg tablet 10 mg PO QHS asthma 04/07/19 04/25/20 History (Singulair) norgestimate-ethinyl estradiol 1 ea PO QHS control 04/07/19 04/25/20 History 0.18 mg/0.215mg/0.25mg-35 mcg(28)tablet sumatriptan 20 mg/actuation nasal 20 mg NS PRN PRN migraines 04/07/19 Unknown History spray gabapentin 300 mg capsule 100 mg PO TID nerve damage 04/27/20 10/31/20 05:45 History (Neurontin) ondansetron HCl 4 mg tablet 4 mg PO Q6H PRN nausea and 10/10/20 Unknown Rx (Zofran) vomiting #12 tabs dicyclomine 10 mg capsule 20 mg (2 x 10 mg) PO 4X/DAY PRN 10/13/20 Unknown Rx PRN abdominal discomfort #20 CAPSULES pantoprazole 20 mg tablet,delayed 20 mg PO DAILY #60 tabs 10/15/20 Unknown Rx release oxycodone-acetaminophen 5 mg-325 1 tab PO Q6H PRN PRN Pain 10/29/20 Unknown History mg tablet (Percocet) ondansetron 4 mg disintegrating 4 mg PO Q8H PRN PRN Nausea #10 tabs 09/07/23 Unknown Rx tablet Allergy/AdvReac Type Severity Reaction Status Date / Time No Known Allergies Allergy Verified 09/07/23 06:31 Family History (Updated 10/15/20 @ 08:08 by Keila Maurice) Mother Heart disease CVA (cerebral vascular accident) Surgical History Hx of wisdom tooth extraction H/O foot surgery Social History Smoking Status: Never smoker alcohol intake: current alcohol intake frequency: holidays/special occasions only ROS ROS ED Constitutional Constitutional ED: Denies chills, fever(s) or sweats Eyes Eyes: Denies change in vision ENT ENT ED: Denies dysphagia or sore throat Cardiovascular Cardiovascular: Denies chest pain, leg edema, palpitations or racing heartbeat Respiratory/Chest Respiratory/Chest: Denies cough, dyspnea or dyspnea on exertion Gastrointestinal Gastrointestinal: Reports nausea and vomiting; Denies abdominal pain or diarrhea Genitourinary Genitourinary ED: Denies dysuria, hematuria or urinary frequency Musculoskeletal Musculoskeletal: Reports other Details: Lower extremity cramping ; Denies back pain, extremity pain or neck pain Integumentary Denies rash or wounds Neurologic Neurologic: Denies headache(s), paresthesias or weakness EXAM Physical Exam Const Vital Signs: 09/07/23 06:29 09/07/23 08:28 09/07/23 10:00 Temperature 97.4 F L Temperature Source Temporal Pulse Rate 112 H 110 H 78 Respiratory Rate 18 16 16 Blood Pressure 162/96 H 168/74 H Blood Pressure Mean 118 105 Pulse Ox 98 98 98 Oxygen Delivery Method Room Air Room Air Room Air Positive well nourished and well developed General Appearance ED: well developed and NAD HEENT Reports dry mucous membranes normocephalic and atraumatic Mouth ED: Yes dry mucous membranes Mouth: dry mucous membranes Eyes EOMs intact bilaterally and conjunctivae normal General Eye ED: Yes normal appearance of both eyes Neck no lymphadenopathy and supple General: Negative for tenderness Chest Wall Chest: Negative for tenderness Resp normal respiratory effort and normal air movement Effort and Inspection: symmetric chest movement; Negative for respiratory distress Cardio regular rhythm and no murmurs Rate: tachycardic Peripheral Pulses: pulses 2+ throughout GI normal to inspection, nondistended, normoactive bowel sounds and non-tender GI Narrative: Negative Ramesh's McBurney's tenderness. No guarding or rebound. Palpation: Negative for guarding or rebound tenderness present Back/Spine no CVA tenderness and no thoracic nor lumbar tenderness Extremity normal to inspection General Extremety ED: Negative for edema or tenderness General Extremity: Negative for edema Neuro oriented x3 and no sensory deficits noted Sensorium / Orientation: awake and alert Skin no rashes or lesions noted and no wounds MDM MDM MDM Narrative Medical decision making narrative: Interventions / MDM: Differential diagnosis: Dehydration, electrolyte abnormalities, vomiting diarrhea Diagnosis considered but do not suspect: No clinical cholecystitis, no clinical colitis, no C. difficile risk factors. My EKG interpretation: N/A Imaging independently reviewed and interpreted by myself: N/A External documents reviewed: N/A Test considered but not ordered:N/A ED course: Patient slight tachycardia arrival dry mucosal membranes. IV established for fluids we will check basic labs, IV Zofran ordered. 0803: Labs all stable. Normal electrolytes. Reevaluation still had nausea however less severe. IV Reglan ordered. Stools were being collected. She also reported multiple family members now having similar symptoms that she is talk to him on the phone. Mother's Day was over the weekend. 1115: C. difficile returned negative culture pending. Clinically improving on reevaluation. Tolerating oral fluids. She had slight jitteriness with the Reglan. That has resolved. Prescription for Zofran. Outpatient follow-up. All questions were answered. Re-evaluation: stable Disposition discussed with patient/family/significant other: Patient Case discussed with consulting clinician: N/A This note was generated with [employer] dictation software. It may contain incorrect words, spelling, and punctuation that were not noted in checking the note before signing. Lab Data Attestation: I reviewed the patient's lab results. Labs: Laboratory Results - last 24 hr 09/07/23 06:35 WBC 10.1 RBC 4.70 Hgb 13.5 Hct 41.4 MCV 88.1 MCH 28.7 MCHC 32.6 RDW Std Deviation 42.0 RDW Coeff of Dejan 12.9 Plt Count 379 MPV 8.6 Immature Gran % (Auto) 0.500 Neut % (Auto) 89.1 H Lymph % (Auto) 6.0 L Door % (Auto) 3.9 Eos % (Auto) 0.2 Baso % (Auto) 0.3 Absolute Neuts (auto) 9.0 H Absolute Lymphs (auto) 0.61 L Nucleated RBC % 0 Sodium 136 Potassium 3.5 Chloride 106 Carbon Dioxide 23.0 Anion Gap 7 BUN 17 Creatinine 0.86 Estim Creat Clear Calc 132.09 Est GFR (MDRD) Af Amer 96 Est GFR (MDRD) Non-Af 80 BUN/Creatinine Ratio 19.8 Glucose 139 H Calcium 8.9 Discharge Plan Triage Chief Complaint: Nausea/Vomiting/Diarrhea ED Provider: Jerod Renee Dx/Rx/DC Orders Clinical Impression: Nausea vomiting and diarrhea, Dehydration Instructions: Dehydration, ED Vomit Diarrhea Nonspec Adult Prescriptions: New ondansetron 4 mg tablet,disintegrating 4 mg PO Q8H PRN PRN (Reason: Nausea) Qty: 10 0RF No Action pantoprazole 20 mg tablet,delayed release (DR/EC) 20 mg PO DAILY Qty: 60 0RF fluticasone propion-salmeterol [Advair Diskus] 1 EACH blister with device 1 puff IH DAILY norgestimate-ethinyl estradiol 1 EACH tablet 1 ea PO QHS montelukast [Singulair] 10 MG tablet 10 mg PO QHS sumatriptan 20 MG spray,non-aerosol 20 mg NS PRN PRN (Reason: migraines) metaxalone [Skelaxin] 800 MG tablet 800 mg PO QHS bupropion HCl 150 MG tablet extended release 24 hr 150 mg PO BID duloxetine [Cymbalta] 60 MG capsule 60 mg PO QHS cholecalciferol (vitamin D3) 1,000 UNIT tablet 1,000 unit PO BID loratadine 10 MG capsule 10 mg PO DAILY albuterol sulfate 1 PUFF inhaler 1 - 2 puff inhalation Q6H PRN PRN (Reason: Sob &/Or Wheezing) gabapentin [Neurontin] 300 MG capsule 100 mg PO TID ondansetron HCl [Zofran] 4 mg tablet 4 mg PO Q6H PRN (Reason: nausea and vomiting) Qty: 12 0RF dicyclomine 10 MG capsule 20 mg PO 4X/DAY PRN PRN (Reason: abdominal discomfort) Qty: 20 0RF oxycodone-acetaminophen [Percocet] 1 TABLET tablet 1 tab PO Q6H PRN PRN (Reason: Pain) Stand Alone Forms: ED Work / School Excuse Primary Care Provider: John Greenfield Referrals: John Greenfield DO [Primary Care Provider] - 3-5 Days if not improving Activity Restrictions/Additional Instructions: Labs were stable with normal electrolytes. C. difficile negative stool culture pending. Continue oral fluids for hydration. Use Zofran as needed. Print Language: Honduran Disposition Disposition: Home, Self Care
[2023-09-07] MEDS: Ondansetron 4 MG/2 ML Vial IV (07:22)
[2023-09-07] MEDS: 0.9% Normal Saline (1000mL) 1,000 ML 1000 ML IV (07:22)
[2023-09-07 07:30] LABS: Absolute Lymphocyte Count 0.61 X10^3/uL (0.83-4.51); Basophil# 0.03 X10^3/uL; Basophil% 0.3 % (0-1); Eosinophil# 0.02 X10^3/uL; Eosinophils% 0.2 % (0-5); Hematocrit 41.4 % (37-47); Hemoglobin 13.5 g/dL (12.0-15.0); Lymphocyte # 0.61 X10^3/ul (0.83-4.51); Mean Corp Hgb Conc 32.6 g/dL (32-36); Mean Corpuscular Hgb 28.7 pg (27.0-32.0); Mean Corpuscular Volume 88.1 fL (81-99); Mean Platelet Vol. 8.6 fl (6.2-12.0); Monocyte# 0.39 X10^3/uL; Monocyte% 3.9 % (0-10); NRBC Flagged by Analyzer 0 % (0-5); Neutrophil # 8.99 X10^3/uL (2.7-7.7); Neutrophil % 89.1 % (47-70); Platelet Count 379 K/mm3 (150-450); RBC Distribution Width CV 12.9 % (11.6-14.6); White Blood Count 10.1 K/mm3 (4.4-11.0)
[2023-09-07 07:43] LABS: Anion Gap 7 (5-15); BUN 17 mg/dL (7-18); BUN/Creat Ratio 19.8 RATIO (10-20); Calcium,Total 8.9 mg/dL (8.5-10.1); Chloride 106 mmol/L (98-107); Creatinine, Serum 0.86 mg/dL (0.55-1.02); EST Glomerular Filtration Rate 80 mL/min (>60); Est Glom Filt Rate - Afr Amer 96 mL/min (>60); Estimated Creatinine Clearance 132.09 ml/min; Glucose 139 mg/dL (74-106); Potassium 3.5 mmol/L (3.5-5.1); Sodium Level 136 mmol/L (136-145)
[2023-09-07 08:28] VITALS: BP 168/74; PULSE 110; RESP 16; O2SAT 98
[2023-09-07] MEDS: Metoclopramide 10 MG/2 ML Vial 5 MG IV (09:22)
[2023-09-07 10:00] VITALS: PULSE 78; RESP 16; O2SAT 98
[2023-09-07 11:20] VITALS: BP 135/81; PULSE 97; RESP 17; TEMP 36.6; O2SAT 97
== END 2023-09-07 11:23 | disposition home or self-care (01) ==
PROVIDERS: Emergency Provider Emergency Medicine; PCP Student in an Organized Health Care Education/Training Program; Visit Provider Emergency Medicine
DX: E86.0 Dehydration (principal); R11.2 Nausea with vomiting, unspecified; R10.9 Unspecified abdominal pain; R19.7 Diarrhea, unspecified; K21.9 Gastro-esophageal reflux disease without esophagitis; J45.909 Unspecified asthma, uncomplicated
CPT/HCPCS: 80048; 85025; 87493; 87506; 96361; 96374; 96375; 99283; J7030; A4216; J2405